=== PATIENT | male | born 1965 | race Caucasian/White ===

== ENCOUNTER 2019-02-27 13:58 | Inpatient (IN) | payer MEDICAID ==
[~2019-02-27] VITALS: Ht 167.6 cm; Wt 75.5 kg
[2019-02-27 14:56] VITALS: BP 125/80
[2019-02-27] MEDS ORDERED: ZOLPIDEM TARTRATE 10 MG TABLET PO PRN (15:30)
[2019-02-27] MEDS ORDERED: HALOPERIDOL 5 MG TABLET PO PRN (15:30)
[2019-02-27] MEDS ORDERED: QUET25TA PO (15:50)
[2019-02-27] MEDS ORDERED: PNEUMOCOCCAL VACCINE POLYVALENT 0.5 ML VIAL [PPSV23] IM ONE (16:00)
[2019-02-27 16:12] VITALS: BP 130/88
[2019-02-28] MEDS: ACETAMINOPHEN 325 MG TABLET PO PRN (06:28)
[2019-02-28 06:31] VITALS: BP 133/73
[2019-02-28] MEDS: LORazepam 2 MG TABLET PO PRN ×2 (06:46→16:01)
[2019-02-28 06:51] LABS: BASOPHILS % (AUTO) 0.4 % (0.0-2.0); EOSINOPHILS % (AUTO) 4.1 % (1.0-6.0); HEMATOCRIT 45.9 % (41-53); HEMOGLOBIN 15.3 g/dL (13.5-17.5); LYMPHOCYTES # (AUTO) 2.6 K/uL (1.0-4.8); LYMPHOCYTES % (AUTO) 43.4 % (22.0-44.0); MEAN CORPUSCULAR HEMOGLOBIN 31.6 pg (26.0-34.0); MEAN CORPUSCULAR HGB CONC 33.4 G/dL (31.0-37.0); MEAN CORPUSCULAR VOLUME 95 fL (80-100); MONOCYTES # (AUTO) 0.4 K/uL (0.1-1.0); MONOCYTES % (AUTO) 7.2 % (2.0-9.0); NEUTROPHILS # (AUTO) 2.7 K/uL (1.8-7.7); NEUTROPHILS % (AUTO) 44.9 % (40.0-70.0); PLATELET COUNT (AUTO) 217 K/uL (150-450); RED BLOOD CELL COUNT(AUTO) 4.85 MIL/uL (4.50-5.90); RED CELL DISTRIBUTION WIDTH 13.4 % (11.5-14.5)
[2019-02-28 07:34] LABS: AMPHET/METH SCREEN,URINE POSITIVE (NEGATIVE); BARBITURATE SCREEN, URINE NEGATIVE (NEGATIVE); BENZODIAZEPINES SCREEN,URINE NEGATIVE (NEGATIVE); CANNABINOID SCREEN,URINE NEGATIVE (NEGATIVE); COCAINE SCREEN,URINE NEGATIVE (NEGATIVE); METHADONE SCREEN, URINE NEGATIVE (NEGATIVE); OPIATE SCREEN,URINE POSITIVE (NEGATIVE)
[2019-02-28 07:39] LABS: ALANINE AMINOTRANSFERASE 24 U/L (12-78); ALBUMIN 3.7 g/dL (3.4-5.0); ALKALINE PHOSPHATASE 69 U/L (46-116); ANION GAP 8 mmol/L (8-16); ASPARTATE AMINOTRANSFERASE 29 U/L (15-37); CALCIUM, TOTAL 8.9 mg/dL (8.8-10.5); CARBON DIOXIDE 27 mmol/L (22-29); CHLORIDE 107 mmol/L (98-107); CHOL/HDL RATIO 2.6 (4.2-7.3); CHOLESTEROL 139 mg/dL (131-200); CREATININE 0.91 mg/dL (0.60-1.30); GLOMERULAR FILTR. RATE CALC > 60 mL/min (>60); GLUCOSE,RANDOM 88 mg/dL (70-110); HDL CHOLESTEROL 54 mg/dL (40-60); LDL CHOL (CALC.) 72 mg/dL (0-130); SODIUM SERUM 142 mmol/L (136-145); THYROID STIMULATING HORMONE 0.36 uIU/mL (0.36-3.74); TOTAL PROTEIN, SERUM 6.2 g/dL (6.4-8.2); TRIGLYCERIDES 64 mg/dL (15-150); UREA NITROGEN, BLOOD 13 mg/dL (7-18)
[2019-02-28 07:45] LABS: PHENCYCLIDINE SCREEN,URINE NEGATIVE (NEGATIVE)
[2019-02-28 08:10] LABS: BILIRUBIN,URINE NEGATIVE (NEGATIVE); GLUCOSE, URINE (UA) NEGATIVE (NEGATIVE); KETONES,URINE NEGATIVE (NEGATIVE); LEUKOCYTE ESTERASE ,URINE NEGATIVE (NEGATIVE); NITRATE,URINE NEGATIVE (NEGATIVE); OCCULT BLOOD,URINE NEGATIVE (NEGATIVE); PH,URINE 5.5 (5.0-8.0); PROTEIN,URINE NEGATIVE (NEGATIVE); UROBILINOGEN,URINE 0.2 mg/dL (<=1.0)
[2019-02-28 08:14] LABS: HEMOGLOBIN A1C 5.7 % (4.5-6.2)
[2019-02-28 08:17] VITALS: BP 106/64
[2019-02-28 08:20] LABS: APPEARANCE,URINE CLEAR (CLEAR)
[2019-02-28] MEDS: NICOTINE 21 MG/24 HOUR PATCH TD SCH (09:13)
[2019-02-28] MEDS: OLANZapine 10 MG TABLET PO SCH (16:01)
[2019-02-28 16:28] VITALS: BP 114/71
[2019-03-01 01:37] VITALS: BP 135/85
[2019-03-01] MEDS: IBUPROFEN 600 MG TABLET PO PRN ×3 (01:37→16:08)
[2019-03-01 08:02] VITALS: BP 132/83
[2019-03-01] MEDS: OLANZapine 10 MG TABLET PO SCH ×2 (08:34→16:08)
[2019-03-01] MEDS: NICOTINE 21 MG/24 HOUR PATCH TD SCH (08:34)
[2019-03-01 10:43] VITALS: BP 130/86
[2019-03-01 16:00] VITALS: BP 117/75
[2019-03-01] MEDS: LORazepam 2 MG TABLET PO PRN (16:08)
[2019-03-01 17:08] VITALS: BP 122/70
[2019-03-02 01:40] VITALS: BP 116/73
[2019-03-02] MEDS: IBUPROFEN 600 MG TABLET PO PRN ×2 (04:50→12:33)
[2019-03-02 08:02] VITALS: BP 102/45
[2019-03-02] MEDS: NICOTINE 21 MG/24 HOUR PATCH TD SCH (08:05)
[2019-03-02] MEDS: OLANZapine 10 MG TABLET PO SCH ×2 (08:05→16:23)
[2019-03-02 12:33] VITALS: BP 130/75
[2019-03-02 13:33] VITALS: BP 134/87
[2019-03-02] MEDS: LORazepam 2 MG TABLET PO PRN (14:52)
[2019-03-02 16:00] VITALS: BP 136/90
[2019-03-03] MEDS: IBUPROFEN 600 MG TABLET PO PRN ×2 (05:30→12:39)
[2019-03-03 05:31] VITALS: BP 132/88
[2019-03-03] MEDS: ACETAMINOPHEN 325 MG TABLET PO PRN (06:24)
[2019-03-03 08:01] VITALS: BP 126/79
[2019-03-03] MEDS: OLANZapine 10 MG TABLET PO SCH ×2 (08:02→16:14)
[2019-03-03] MEDS: NICOTINE 21 MG/24 HOUR PATCH TD SCH (08:03)
[2019-03-03 12:35] VITALS: BP 132/77
[2019-03-03 13:39] VITALS: BP 135/77
[2019-03-03 16:02] VITALS: BP 128/84
[2019-03-03] MEDS: LORazepam 2 MG TABLET PO PRN (16:14)
[2019-03-04 00:05] VITALS: BP 131/85
[2019-03-04] MEDS: IBUPROFEN 600 MG TABLET PO PRN (00:08)
[2019-03-04 06:04] VITALS: BP 116/80
[2019-03-04] MEDS: ACETAMINOPHEN 325 MG TABLET PO PRN (06:06)
[2019-03-04 08:07] VITALS: BP 124/70
[2019-03-04] MEDS: NICOTINE 21 MG/24 HOUR PATCH TD SCH (08:29)
[2019-03-04] MEDS: OLANZapine 10 MG TABLET PO SCH ×2 (08:29→16:36)
[2019-03-04] MEDS: LORazepam 2 MG TABLET PO PRN ×2 (09:03→13:54)
[2019-03-04 16:00] VITALS: BP 109/68
[2019-03-05 01:55] VITALS: BP 114/69
[2019-03-05] MEDS: IBUPROFEN 600 MG TABLET PO PRN (02:00)
[2019-03-05] MEDS: LORazepam 2 MG TABLET PO PRN ×2 (02:00→16:13)
[2019-03-05 08:00] VITALS: BP 124/65
[2019-03-05] MEDS: OLANZapine 10 MG TABLET PO SCH ×2 (08:14→16:13)
[2019-03-05] MEDS: NICOTINE 21 MG/24 HOUR PATCH TD SCH (08:16)
[2019-03-05 16:24] VITALS: BP 115/76
[2019-03-06 00:28] VITALS: BP_SYST 103; BP_SYST 112; BP_DIAS 73
[2019-03-06] MEDS: LORazepam 2 MG TABLET PO PRN (00:28)
[2019-03-06] MEDS: IBUPROFEN 600 MG TABLET PO PRN (00:28)
[2019-03-06] MEDS: OLANZapine 10 MG TABLET PO SCH (08:14)
[2019-03-06] MEDS: NICOTINE 21 MG/24 HOUR PATCH TD SCH (08:14)
[2019-03-06 08:30] VITALS: BP 106/67
[2019-03-06] MEDS ORDERED: MULTIVITAMINS WITH MINERALS, THERAPEUTIC TABLET PO SCH (09:00)
[2019-03-06] MEDS ORDERED: OLAN10TA20 PO (09:00)
[2019-03-06] MEDS ORDERED: OLAN10TA3 PO (12:27)
== END 2019-03-06 13:00 | disposition home or self-care (01) | DRG 750 ==
LOC: B3A 16:52
PROVIDERS: ADMIT Psychiatry & Neurology Child & Adolescent Psychiatry; ATTEND Psychiatry & Neurology Child & Adolescent Psychiatry
PROC: 3E0234Z Introduction of Serum, Toxoid and Vaccine into Muscle, Percutaneous Approach (ICD-10-PCS; principal; 2019-02-27)
DX: F20.0 Paranoid schizophrenia (principal); Z59.0 Homelessness; E78.00 Pure hypercholesterolemia, unspecified; F15.10 Other stimulant abuse, uncomplicated; I10 Essential (primary) hypertension; F17.200 Nicotine dependence, unspecified, uncomplicated; Z23 Encounter for immunization
CPT/HCPCS: 80307; 83036; 84439; 84443; 90732

== ENCOUNTER 2019-05-06 15:29 | Inpatient (IN) | payer MEDICAID ==
[~2019-05-06] VITALS: Ht 167.6 cm; Wt 85.3 kg
[~2019-05-06 15:29] MED LIST: OLAN10TA20 PO; OLAN10TA3 PO
[2019-05-06 17:01] VITALS: BP 110/73
[2019-05-06] MEDS: ZOLPIDEM TARTRATE 10 MG TABLET PO PRN (20:33)
[2019-05-07 06:10] VITALS: BP 105/65
[2019-05-07 07:38] LABS: BASOPHILS % (AUTO) 0.3 % (0.0-2.0); EOSINOPHILS % (AUTO) 3.5 % (1.0-6.0); HEMATOCRIT 42.5 % (41-53); HEMOGLOBIN 14.5 g/dL (13.5-17.5); LYMPHOCYTES % (AUTO) 27.4 % (22.0-44.0); MEAN CORPUSCULAR HEMOGLOBIN 32.4 pg (26.0-34.0); MEAN CORPUSCULAR HGB CONC 34.1 G/dL (31.0-37.0); MEAN CORPUSCULAR VOLUME 95 fL (80-100); MONOCYTES # (AUTO) 0.5 K/uL (0.1-1.0); MONOCYTES % (AUTO) 6.1 % (2.0-9.0); NEUTROPHILS # (AUTO) 4.7 K/uL (1.8-7.7); NEUTROPHILS % (AUTO) 62.7 % (40.0-70.0); PLATELET COUNT (AUTO) 237 K/uL (150-450); RED BLOOD CELL COUNT(AUTO) 4.48 MIL/uL (4.50-5.90); RED CELL DISTRIBUTION WIDTH 14.5 % (11.5-14.5)
[2019-05-07 07:57] LABS: HEMOGLOBIN A1C 5.4 % (4.5-6.2)
[2019-05-07 08:11] LABS: ALANINE AMINOTRANSFERASE 23 U/L (12-78); ALBUMIN 3.4 g/dL (3.4-5.0); ALKALINE PHOSPHATASE 73 U/L (46-116); ANION GAP 9 mmol/L (8-16); ASPARTATE AMINOTRANSFERASE 17 U/L (15-37); BILIRUBIN,TOTAL 0.3 mg/dL (0.1-1.0); CALCIUM, TOTAL 8.7 mg/dL (8.8-10.5); CARBON DIOXIDE 23 mmol/L (22-29); CHLORIDE 108 mmol/L (98-107); CHOL/HDL RATIO 3.5 (4.2-7.3); CHOLESTEROL 152 mg/dL (131-200); CREATININE 0.94 mg/dL (0.60-1.30); FREE T4 (FREE THYROXINE) 0.94 ng/dL (0.76-1.46); GLOMERULAR FILTR. RATE CALC > 60 mL/min (>60); GLUCOSE,RANDOM 110 mg/dL (70-110); HDL CHOLESTEROL 44 mg/dL (40-60); LDL CHOL (CALC.) 84 mg/dL (0-130); POTASSIUM 4.8 mmol/L (3.5-5.1); SODIUM SERUM 140 mmol/L (136-145); THYROID STIMULATING HORMONE 0.28 uIU/mL (0.36-3.74); TOTAL PROTEIN, SERUM 6.4 g/dL (6.4-8.2); TRIGLYCERIDES 122 mg/dL (15-150); UREA NITROGEN, BLOOD 18 mg/dL (7-18)
[2019-05-07] MEDS: LORazepam 2 MG TABLET PO PRN ×2 (08:16→16:54)
[2019-05-07] MEDS: HALOPERIDOL 5 MG TABLET PO PRN ×2 (08:17→16:54)
[2019-05-07 09:05] VITALS: BP 118/67
[2019-05-07] MEDS: OLANZapine 10 MG TABLET PO SCH ×2 (10:12→20:25)
[2019-05-07] MEDS: NICOTINE 14 MG/24 HOUR PATCH TD SCH (10:22)
[2019-05-07 16:45] VITALS: BP 122/84
[2019-05-07] MEDS: ZOLPIDEM TARTRATE 10 MG TABLET PO PRN (20:25)
[2019-05-08 05:27] VITALS: BP 117/72
[2019-05-08] MEDS: LORazepam 2 MG TABLET PO PRN ×2 (08:14→16:12)
[2019-05-08] MEDS: NICOTINE 14 MG/24 HOUR PATCH TD SCH (08:14)
[2019-05-08] MEDS: OLANZapine 10 MG TABLET PO SCH ×2 (08:14→20:07)
[2019-05-08 08:15] VITALS: BP 121/67
[2019-05-08] MEDS: GABAPENTIN 400 MG CAPSULE PO SCH ×2 (12:08→16:12)
[2019-05-08 16:00] VITALS: BP 110/66
[2019-05-08] MEDS: ZOLPIDEM TARTRATE 10 MG TABLET PO PRN (20:07)
[2019-05-09] MEDS: OLANZapine 10 MG TABLET PO SCH ×2 (08:07→20:12)
[2019-05-09] MEDS: GABAPENTIN 400 MG CAPSULE PO SCH ×3 (08:07→16:27)
[2019-05-09] MEDS: NICOTINE 14 MG/24 HOUR PATCH TD SCH (08:08)
[2019-05-09] MEDS: LORazepam 2 MG TABLET PO PRN (08:08)
[2019-05-09 08:36] VITALS: BP 110/68
[2019-05-09 14:05] VITALS: BP 114/82
[2019-05-09] MEDS: ACETAMINOPHEN 325 MG TABLET PO PRN (14:09)
[2019-05-09 16:10] VITALS: BP 118/68
[2019-05-10 00:52] VITALS: BP 121/68
[2019-05-10] MEDS: ACETAMINOPHEN 325 MG TABLET PO PRN ×2 (00:52→07:23)
[2019-05-10 07:19] VITALS: BP 122/70
[2019-05-10 08:39] VITALS: BP 127/63
[2019-05-10] MEDS: GABAPENTIN 400 MG CAPSULE PO SCH ×2 (08:55→12:20)
[2019-05-10] MEDS: OLANZapine 10 MG TABLET PO SCH (08:55)
[2019-05-10] MEDS: NICOTINE 14 MG/24 HOUR PATCH TD SCH (08:55)
[2019-05-10] MEDS ORDERED: GABA-533 PO (11:23)
[2019-05-10] MEDS ORDERED: OLAN10TA3 PO (11:23)
== END 2019-05-10 12:25 | disposition home or self-care (01) | DRG 750 ==
LOC: B3A 18:58 → B2S 05-09 12:19
PROVIDERS: ADMIT Psychiatry & Neurology Psychiatry; ATTEND Psychiatry & Neurology Psychiatry
DX: F25.1 Schizoaffective disorder, depressive type (principal); R45.851 Suicidal ideations; Z59.0 Homelessness; I10 Essential (primary) hypertension; E78.00 Pure hypercholesterolemia, unspecified; F15.10 Other stimulant abuse, uncomplicated; F12.10 Cannabis abuse, uncomplicated; Z79.899 Other long term (current) drug therapy
CPT/HCPCS: 83036; 84439; 84443

== ENCOUNTER 2019-05-26 15:42 | Inpatient (IN) | payer MEDICAID ==
[~2019-05-26] VITALS: Ht 175.3 cm; Wt 80.5 kg
[~2019-05-26 15:42] MED LIST changes: +GABA-533 PO; -OLAN10TA20 PO
[2019-05-26] MEDS ORDERED: PROZ10 PO (16:03)
[2019-05-26 16:44] VITALS: BP 118/72
[2019-05-26] MEDS ORDERED: LORazepam 2 MG TABLET PO PRN (16:45)
[2019-05-26] MEDS ORDERED: ZOLPIDEM TARTRATE 10 MG TABLET PO PRN (16:45)
[2019-05-26] MEDS ORDERED: HALOPERIDOL 5 MG TABLET PO PRN (16:45)
[2019-05-26 17:16] VITALS: BP 122/80
[2019-05-26] MEDS: IBUPROFEN 600 MG TABLET PO PRN (19:03)
[2019-05-26] MEDS ORDERED: INFLUENZA VIRUS VACCINE QVS 2019-20 (3YR+)/PF 60 MCG/0.5 ML SYRINGE IM ONE (22:00)
[2019-05-27 00:44] VITALS: BP 109/67
[2019-05-27 06:28] VITALS: BP 133/77
[2019-05-27] MEDS: IBUPROFEN 600 MG TABLET PO PRN ×2 (06:32→16:07)
[2019-05-27 08:15] VITALS: BP 122/64
[2019-05-27 08:16] LABS: BASOPHILS % (AUTO) 0.3 % (0.0-2.0); EOSINOPHILS % (AUTO) 2.7 % (1.0-6.0); HEMATOCRIT 42.7 % (41-53); HEMOGLOBIN 14.7 g/dL (13.5-17.5); LYMPHOCYTES # (AUTO) 1.8 K/uL (1.0-4.8); LYMPHOCYTES % (AUTO) 32.4 % (22.0-44.0); MEAN CORPUSCULAR HEMOGLOBIN 32.2 pg (26.0-34.0); MEAN CORPUSCULAR HGB CONC 34.4 G/dL (31.0-37.0); MEAN CORPUSCULAR VOLUME 94 fL (80-100); MONOCYTES # (AUTO) 0.3 K/uL (0.1-1.0); MONOCYTES % (AUTO) 5.2 % (2.0-9.0); NEUTROPHILS # (AUTO) 3.3 K/uL (1.8-7.7); NEUTROPHILS % (AUTO) 59.4 % (40.0-70.0); PLATELET COUNT (AUTO) 227 K/uL (150-450); RED BLOOD CELL COUNT(AUTO) 4.56 MIL/uL (4.50-5.90); RED CELL DISTRIBUTION WIDTH 14.2 % (11.5-14.5)
[2019-05-27] MEDS: NICOTINE 21 MG/24 HOUR PATCH TD SCH (08:49)
[2019-05-27 09:04] LABS: ALANINE AMINOTRANSFERASE 22 U/L (12-78); ALBUMIN 3.6 g/dL (3.4-5.0); ALKALINE PHOSPHATASE 54 U/L (46-116); ANION GAP 7 mmol/L (8-16); ASPARTATE AMINOTRANSFERASE 17 U/L (15-37); BILIRUBIN,TOTAL 0.5 mg/dL (0.1-1.0); CALCIUM, TOTAL 9.3 mg/dL (8.8-10.5); CARBON DIOXIDE 29 mmol/L (22-29); CHLORIDE 106 mmol/L (98-107); CHOL/HDL RATIO 2.5 (4.2-7.3); CHOLESTEROL 137 mg/dL (131-200); CREATININE 0.96 mg/dL (0.60-1.30); FREE T4 (FREE THYROXINE) 1.01 ng/dL (0.76-1.46); GLOMERULAR FILTR. RATE CALC > 60 mL/min (>60); GLUCOSE,RANDOM 99 mg/dL (70-110); HDL CHOLESTEROL 54 mg/dL (40-60); HEMOGLOBIN A1C 5.7 % (4.5-6.2); LDL CHOL (CALC.) 69 mg/dL (0-130); POTASSIUM 4.7 mmol/L (3.5-5.1); SODIUM SERUM 142 mmol/L (136-145); THYROID STIMULATING HORMONE 0.53 uIU/mL (0.36-3.74); TOTAL PROTEIN, SERUM 6.3 g/dL (6.4-8.2); TRIGLYCERIDES 71 mg/dL (15-150); UREA NITROGEN, BLOOD 17 mg/dL (7-18)
[2019-05-27] MEDS: GABAPENTIN 400 MG CAPSULE PO SCH ×2 (12:18→16:07)
[2019-05-27] MEDS: OLANZapine 10 MG TABLET PO SCH ×2 (12:18→20:21)
[2019-05-27 16:07] VITALS: BP 120/62
[2019-05-27] MEDS: FLUoxetine HCL 10 MG CAPSULE PO SCH (20:21)
[2019-05-28 01:21] VITALS: BP 134/65
[2019-05-28] MEDS: GABAPENTIN 400 MG CAPSULE PO SCH ×3 (08:32→16:04)
[2019-05-28] MEDS: NICOTINE 21 MG/24 HOUR PATCH TD SCH (08:33)
[2019-05-28] MEDS: OLANZapine 10 MG TABLET PO SCH ×2 (08:33→20:14)
[2019-05-28 08:44] VITALS: BP 113/68
[2019-05-28 16:04] VITALS: BP 123/65
[2019-05-28] MEDS: IBUPROFEN 600 MG TABLET PO PRN (16:04)
[2019-05-28] MEDS: FLUoxetine HCL 10 MG CAPSULE PO SCH (20:14)
[2019-05-29 00:47] VITALS: BP 117/68
[2019-05-29 08:25] VITALS: BP 117/67
[2019-05-29] MEDS: GABAPENTIN 400 MG CAPSULE PO SCH (08:32)
[2019-05-29] MEDS: OLANZapine 10 MG TABLET PO SCH (08:32)
[2019-05-29] MEDS: NICOTINE 21 MG/24 HOUR PATCH TD SCH (08:33)
[2019-05-29] MEDS ORDERED: OLAN10TA20 PO (08:37)
[2019-05-29] MEDS ORDERED: PROZ10 PO (08:37)
== END 2019-05-29 09:40 | disposition home or self-care (01) | DRG 750 ==
LOC: B2S 16:42
PROVIDERS: ADMIT Psychiatry & Neurology Child & Adolescent Psychiatry; ATTEND Psychiatry & Neurology Child & Adolescent Psychiatry
DX: F25.1 Schizoaffective disorder, depressive type (principal); F15.20 Other stimulant dependence, uncomplicated; R45.851 Suicidal ideations; E78.00 Pure hypercholesterolemia, unspecified; F17.200 Nicotine dependence, unspecified, uncomplicated; Z59.0 Homelessness; Z79.899 Other long term (current) drug therapy
CPT/HCPCS: 83036; 84439; 84443; 87081

== ENCOUNTER 2019-05-31 00:21 | Inpatient (IN) | payer MEDICAID, OTHER ==
[~2019-05-31] VITALS: Ht 172.7 cm; Wt 77.6 kg
[~2019-05-31 00:21] MED LIST changes: +OLAN10TA20 PO; -OLAN10TA3 PO; +PROZ10 PO
[2019-05-31] MEDS ORDERED: FLUoxetine HCL 10 MG CAPSULE PO ONE (01:15)
[2019-05-31] MEDS ORDERED: OLANZapine 5 MG TABLET PO ONE (01:15)
[2019-05-31 01:16] LABS: BASOPHILS % (AUTO) 0.3 % (0.0-2.0); EOSINOPHILS % (AUTO) 2.5 % (1.0-6.0); HEMATOCRIT 48.5 % (41-53); HEMOGLOBIN 16.5 g/dL (13.5-17.5); LYMPHOCYTES # (AUTO) 2.6 K/uL (1.0-4.8); LYMPHOCYTES % (AUTO) 32.3 % (22.0-44.0); MEAN CORPUSCULAR VOLUME 94 fL (80-100); MONOCYTES # (AUTO) 0.6 K/uL (0.1-1.0); MONOCYTES % (AUTO) 7.3 % (2.0-9.0); NEUTROPHILS # (AUTO) 4.7 K/uL (1.8-7.7); NEUTROPHILS % (AUTO) 57.6 % (40.0-70.0); PLATELET COUNT (AUTO) 251 K/uL (150-450); RED BLOOD CELL COUNT(AUTO) 5.15 MIL/uL (4.50-5.90); RED CELL DISTRIBUTION WIDTH 14.4 % (11.5-14.5)
[2019-05-31 01:29] LABS: ALANINE AMINOTRANSFERASE 23 U/L (12-78); ALBUMIN 4.4 g/dL (3.4-5.0); ALKALINE PHOSPHATASE 78 U/L (46-116); ANION GAP 7 mmol/L (8-16); ASPARTATE AMINOTRANSFERASE 26 U/L (15-37); BILIRUBIN,TOTAL 0.5 mg/dL (0.1-1.0); CALCIUM, TOTAL 9.7 mg/dL (8.8-10.5); CARBON DIOXIDE 32 mmol/L (22-29); CHLORIDE 103 mmol/L (98-107); CREATININE 1.11 mg/dL (0.60-1.30); GLOMERULAR FILTR. RATE CALC > 60 mL/min (>60); GLUCOSE,RANDOM 67 mg/dL (70-110); POTASSIUM 3.8 mmol/L (3.5-5.1); SODIUM SERUM 142 mmol/L (136-145)
[2019-05-31] MEDS ORDERED: IBUPROFEN 800 MG TABLET PO ONE (01:30)
[2019-05-31] MEDS ORDERED: HALOPERIDOL 5 MG TABLET PO PRN (01:30)
[2019-05-31] MEDS ORDERED: ZOLPIDEM TARTRATE 10 MG TABLET PO PRN (01:30)
[2019-05-31 01:38] LABS: UREA NITROGEN, BLOOD 13 mg/dL (7-18)
[2019-05-31 03:32] LABS: APPEARANCE,URINE CLEAR (CLEAR); BILIRUBIN,URINE NEGATIVE (NEGATIVE); GLUCOSE, URINE (UA) NEGATIVE (NEGATIVE); KETONES,URINE NEGATIVE (NEGATIVE); LEUKOCYTE ESTERASE ,URINE NEGATIVE (NEGATIVE); NITRATE,URINE NEGATIVE (NEGATIVE); OCCULT BLOOD,URINE NEGATIVE (NEGATIVE); PROTEIN,URINE NEGATIVE (NEGATIVE); UROBILINOGEN,URINE 0.2 mg/dL (<=1.0)
[2019-05-31 03:37] LABS: AMPHET/METH SCREEN,URINE POSITIVE (NEGATIVE); BARBITURATE SCREEN, URINE NEGATIVE (NEGATIVE); BENZODIAZEPINES SCREEN,URINE NEGATIVE (NEGATIVE); CANNABINOID SCREEN,URINE NEGATIVE (NEGATIVE); COCAINE SCREEN,URINE NEGATIVE (NEGATIVE); METHADONE SCREEN, URINE NEGATIVE (NEGATIVE); OPIATE SCREEN,URINE NEGATIVE (NEGATIVE); PHENCYCLIDINE SCREEN,URINE NEGATIVE (NEGATIVE)
[2019-05-31 04:09] VITALS: BP 127/97
[2019-05-31] MEDS ORDERED: INFLUENZA VIRUS VACCINE QVS 2019-20 (3YR+)/PF 60 MCG/0.5 ML SYRINGE IM ONE (05:45)
[2019-05-31 08:46] VITALS: BP 119/76
[2019-05-31] MEDS: OLANZapine 10 MG TABLET PO SCH ×2 (13:28→20:33)
[2019-05-31] MEDS: GABAPENTIN 400 MG CAPSULE PO SCH ×2 (13:28→16:23)
[2019-05-31] MEDS: LORazepam 2 MG TABLET PO PRN (16:22)
[2019-05-31 16:46] VITALS: BP 130/77
[2019-05-31] MEDS: FLUoxetine HCL 10 MG CAPSULE PO SCH (20:33)
[2019-06-01 06:44] LABS: CHOL/HDL RATIO 2.3 (4.2-7.3)
[2019-06-01 08:30] VITALS: BP 107/65
[2019-06-01] MEDS: OLANZapine 10 MG TABLET PO SCH ×2 (09:00→20:28)
[2019-06-01] MEDS: LORazepam 2 MG TABLET PO PRN (09:00)
[2019-06-01] MEDS: GABAPENTIN 400 MG CAPSULE PO SCH ×3 (09:00→16:15)
[2019-06-01] MEDS ORDERED: ONDANSETRON HCL 4 MG TABLET PO PRN (09:30)
[2019-06-01] MEDS ORDERED: NICOTINE 14 MG/24 HOUR PATCH TD PRN (09:30)
[2019-06-01] MEDS ORDERED: LOPERAMIDE HCL 2 MG CAPSULE PO PRN (09:30)
[2019-06-01] MEDS ORDERED: CloNIDine HCL 0.1 MG TABLET PO PRN (09:30)
[2019-06-01] MEDS ORDERED: DOCUSATE SODIUM 100 MG CAPSULE PO PRN (09:30)
[2019-06-01] MEDS ORDERED: ALBUTEROL SULFATE HFA 90 MCG/PUFF 8 GM INHALER IH PRN (09:30)
[2019-06-01] MEDS ORDERED: MAGNESIUM HYDROXIDE SUSPENSION 30 ML UDCUP PO PRN (09:30)
[2019-06-01] MEDS ORDERED: GuaiFENesin/D-METHORPHAN [SUGAR-FREE] 200-20MG/10 ML SYRUP UDCUP PO PRN (09:30)
[2019-06-01] MEDS ORDERED: ACETAMINOPHEN 325 MG TABLET PO PRN (09:30)
[2019-06-01] MEDS ORDERED: MAG HYDROX/AL HYDROX/SIMETH ES 30 ML SUSPENSION UDCUP PO PRN (09:30)
[2019-06-01] MEDS ORDERED: PETROLATUM,WHITE 28 GM JELLY TP PRN (09:30)
[2019-06-01 16:49] VITALS: BP 98/68
[2019-06-01] MEDS: FLUoxetine HCL 10 MG CAPSULE PO SCH (20:28)
[2019-06-02 07:50] VITALS: BP 113/68
[2019-06-02] MEDS: LORazepam 2 MG TABLET PO PRN (09:56)
[2019-06-02 09:57] VITALS: BP 113/68
[2019-06-02] MEDS: GABAPENTIN 400 MG CAPSULE PO SCH ×3 (09:57→16:36)
[2019-06-02] MEDS: IBUPROFEN 400 MG TABLET PO PRN (09:57)
[2019-06-02] MEDS: OLANZapine 10 MG TABLET PO SCH ×2 (09:59→20:47)
[2019-06-02] MEDS: FLUoxetine HCL 10 MG CAPSULE PO SCH (20:47)
[2019-06-03 08:39] VITALS: BP 121/75
[2019-06-03] MEDS: OLANZapine 10 MG TABLET PO SCH (08:39)
[2019-06-03] MEDS: IBUPROFEN 400 MG TABLET PO PRN (08:39)
[2019-06-03] MEDS: GABAPENTIN 400 MG CAPSULE PO SCH (08:39)
== END 2019-06-03 11:00 | disposition home or self-care (01) | DRG 750 ==
LOC: EMS 00:25 → 3EI 02:23
PROVIDERS: ADMIT Psychiatry & Neurology Child & Adolescent Psychiatry; ATTEND Psychiatry & Neurology Child & Adolescent Psychiatry
DX: F25.1 Schizoaffective disorder, depressive type (principal); R45.851 Suicidal ideations; Z59.0 Homelessness; I10 Essential (primary) hypertension; F15.90 Other stimulant use, unspecified, uncomplicated; F12.90 Cannabis use, unspecified, uncomplicated; F41.9 Anxiety disorder, unspecified
CPT/HCPCS: 87081; G0480; Q0162

== ENCOUNTER 2019-06-22 23:50 | Inpatient (IN) | payer MEDICAID, OTHER ==
[~2019-06-22] VITALS: Ht 172.7 cm; Wt 77.0 kg
[2019-06-23 00:24] LABS: BASOPHILS % (AUTO) 1.2 % (0.0-2.0); EOSINOPHILS % (AUTO) 4.3 % (1.0-6.0); HEMATOCRIT 40.2 % (41-53); HEMOGLOBIN 13.8 g/dL (13.5-17.5); LYMPHOCYTES # (AUTO) 2.3 K/uL (1.0-4.8); LYMPHOCYTES % (AUTO) 34.7 % (22.0-44.0); MEAN CORPUSCULAR HGB CONC 34.4 G/dL (31.0-37.0); MEAN CORPUSCULAR VOLUME 93 fL (80-100); MONOCYTES # (AUTO) 0.7 K/uL (0.1-1.0); MONOCYTES % (AUTO) 11.1 % (2.0-9.0); NEUTROPHILS # (AUTO) 3.2 K/uL (1.8-7.7); NEUTROPHILS % (AUTO) 48.7 % (40.0-70.0); PLATELET COUNT (AUTO) 237 K/uL (150-450); RED BLOOD CELL COUNT(AUTO) 4.31 MIL/uL (4.50-5.90); RED CELL DISTRIBUTION WIDTH 14.6 % (11.5-14.5)
[2019-06-23 00:32] LABS: ANION GAP 9 mmol/L (8-16); CALCIUM, TOTAL 8.7 mg/dL (8.8-10.5); CARBON DIOXIDE 25 mmol/L (22-29); CHLORIDE 101 mmol/L (98-107); CREATININE 0.89 mg/dL (0.60-1.30); GLOMERULAR FILTR. RATE CALC > 60 mL/min (>60); GLUCOSE,RANDOM 105 mg/dL (70-110); POTASSIUM 3.8 mmol/L (3.5-5.1); SODIUM SERUM 135 mmol/L (136-145); UREA NITROGEN, BLOOD 17 mg/dL (7-18)
[2019-06-23 00:39] LABS: ALANINE AMINOTRANSFERASE 30 U/L (12-78); ALBUMIN 3.8 g/dL (3.4-5.0); ALKALINE PHOSPHATASE 76 U/L (46-116); ASPARTATE AMINOTRANSFERASE 33 U/L (15-37); BILIRUBIN,TOTAL 0.6 mg/dL (0.1-1.0); TOTAL PROTEIN, SERUM 6.9 g/dL (6.4-8.2)
[2019-06-23 01:00] LABS: AMPHET/METH SCREEN,URINE POSITIVE (NEGATIVE); BARBITURATE SCREEN, URINE NEGATIVE (NEGATIVE); BENZODIAZEPINES SCREEN,URINE POSITIVE (NEGATIVE); CANNABINOID SCREEN,URINE POSITIVE (NEGATIVE); COCAINE SCREEN,URINE NEGATIVE (NEGATIVE); METHADONE SCREEN, URINE NEGATIVE (NEGATIVE); OPIATE SCREEN,URINE NEGATIVE (NEGATIVE); PHENCYCLIDINE SCREEN,URINE NEGATIVE (NEGATIVE)
[2019-06-23] MEDS ORDERED: ONDANSETRON HCL 4 MG/2 ML VIAL IVP PRN (02:30)
[2019-06-23] MEDS ORDERED: 0.9% SODIUM CHLORIDE 10 ML SYRINGE IVP PRN (02:30)
[2019-06-23] MEDS ORDERED: ACETAMINOPHEN 325 MG TABLET PO PRN (02:30)
[2019-06-23] MEDS ORDERED: ZOLPIDEM TARTRATE 10 MG TABLET PO PRN (02:45)
[2019-06-23] MEDS ORDERED: OLANZapine 5 MG TABLET PO PRN (02:45)
[2019-06-23 04:20] LABS: APPEARANCE,URINE CLEAR (CLEAR); BILIRUBIN,URINE NEGATIVE (NEGATIVE); GLUCOSE, URINE (UA) NEGATIVE (NEGATIVE); KETONES,URINE NEGATIVE (NEGATIVE); LEUKOCYTE ESTERASE ,URINE NEGATIVE (NEGATIVE); NITRATE,URINE NEGATIVE (NEGATIVE); OCCULT BLOOD,URINE NEGATIVE (NEGATIVE); PH,URINE 5.5 (5.0-8.0); PROTEIN,URINE NEGATIVE (NEGATIVE)
[2019-06-23] MEDS: LORazepam 2 MG TABLET PO PRN ×2 (05:45→16:51)
[2019-06-23] MEDS ORDERED: ACETAMINOPHEN 500 MG TABLET ONE (06:02)
[2019-06-23 06:59] VITALS: BP 108/70
[2019-06-23 07:31] VITALS: BP 114/68
[2019-06-23] MEDS: OLANZapine 10 MG TABLET PO SCH ×2 (11:46→20:51)
[2019-06-23] MEDS: GABAPENTIN 400 MG CAPSULE PO SCH ×2 (12:01→16:51)
[2019-06-23] MEDS: FLUoxetine HCL 10 MG CAPSULE PO SCH (12:35)
[2019-06-23 16:07] VITALS: BP 116/60
[2019-06-24 06:02] VITALS: BP 118/71
[2019-06-24 08:00] VITALS: BP 132/62
[2019-06-24] MEDS: FLUoxetine HCL 10 MG CAPSULE PO SCH (08:36)
[2019-06-24] MEDS: OLANZapine 10 MG TABLET PO SCH ×2 (08:36→20:24)
[2019-06-24] MEDS: GABAPENTIN 400 MG CAPSULE PO SCH ×3 (08:36→16:51)
[2019-06-24 08:45] LABS: CHOL/HDL RATIO 2.7 (4.2-7.3)
[2019-06-24 16:11] VITALS: BP 120/82
[2019-06-25 03:00] VITALS: BP 120/81
[2019-06-25] MEDS: LORazepam 2 MG TABLET PO PRN (06:27)
[2019-06-25 08:00] VITALS: BP 132/86
[2019-06-25] MEDS: FLUoxetine HCL 10 MG CAPSULE PO SCH (08:24)
[2019-06-25] MEDS: GABAPENTIN 400 MG CAPSULE PO SCH ×3 (08:24→17:04)
[2019-06-25] MEDS: OLANZapine 10 MG TABLET PO SCH ×2 (08:24→20:35)
[2019-06-25 16:03] VITALS: BP 122/67
[2019-06-26 06:34] VITALS: BP 134/87
[2019-06-26 08:02] VITALS: BP 140/98
[2019-06-26] MEDS: GABAPENTIN 400 MG CAPSULE PO SCH ×3 (08:29→16:28)
[2019-06-26] MEDS: OLANZapine 10 MG TABLET PO SCH ×2 (08:29→20:27)
[2019-06-26] MEDS: FLUoxetine HCL 10 MG CAPSULE PO SCH (08:30)
[2019-06-26 16:00] VITALS: BP 149/84
[2019-06-27 05:51] VITALS: BP 125/94
[2019-06-27 08:08] VITALS: BP 138/74
[2019-06-27] MEDS: GABAPENTIN 400 MG CAPSULE PO SCH ×3 (08:39→16:04)
[2019-06-27] MEDS: FLUoxetine HCL 10 MG CAPSULE PO SCH (08:39)
[2019-06-27] MEDS: OLANZapine 10 MG TABLET PO SCH ×2 (08:39→20:03)
[2019-06-27] MEDS: NICOTINE 14 MG/24 HOUR PATCH TD SCH (09:57)
[2019-06-27 17:06] VITALS: BP 121/83
[2019-06-28 04:49] VITALS: BP 124/88
[2019-06-28 08:04] VITALS: BP 133/78
[2019-06-28] MEDS ORDERED: ONDANSETRON HCL 4 MG TABLET PO PRN (08:30)
[2019-06-28] MEDS ORDERED: MAGNESIUM HYDROXIDE SUSPENSION 30 ML UDCUP PO PRN (08:30)
[2019-06-28] MEDS ORDERED: MAG HYDROX/AL HYDROX/SIMETH ES 30 ML SUSPENSION UDCUP PO PRN (08:30)
[2019-06-28] MEDS ORDERED: NICOTINE 14 MG/24 HOUR PATCH TD PRN (08:30)
[2019-06-28] MEDS ORDERED: ALBUTEROL SULFATE HFA 90 MCG/PUFF 8 GM INHALER IH PRN (08:30)
[2019-06-28] MEDS ORDERED: CloNIDine HCL 0.1 MG TABLET PO PRN (08:30)
[2019-06-28] MEDS ORDERED: LOPERAMIDE HCL 2 MG CAPSULE PO PRN (08:30)
[2019-06-28] MEDS ORDERED: DOCUSATE SODIUM 100 MG CAPSULE PO PRN (08:30)
[2019-06-28] MEDS ORDERED: ACETAMINOPHEN 325 MG TABLET PO PRN (08:30)
[2019-06-28] MEDS ORDERED: PETROLATUM,WHITE 28 GM JELLY TP PRN (08:30)
[2019-06-28] MEDS ORDERED: GuaiFENesin/D-METHORPHAN [SUGAR-FREE] 200-20MG/10 ML SYRUP UDCUP PO PRN (08:30)
[2019-06-28] MEDS: FLUoxetine HCL 10 MG CAPSULE PO SCH (08:58)
[2019-06-28] MEDS: OLANZapine 10 MG TABLET PO SCH ×2 (08:59→20:51)
[2019-06-28] MEDS: IBUPROFEN 400 MG TABLET PO PRN (08:59)
[2019-06-28] MEDS: GABAPENTIN 400 MG CAPSULE PO SCH ×3 (08:59→17:02)
[2019-06-28] MEDS: NICOTINE 14 MG/24 HOUR PATCH TD SCH (09:00)
[2019-06-28 16:03] VITALS: BP 118/77
[2019-06-29 05:55] VITALS: BP 100/73
[2019-06-29] MEDS: IBUPROFEN 400 MG TABLET PO PRN (05:59)
[2019-06-29 07:58] LABS: BASOPHILS % (AUTO) 0.3 % (0.0-2.0); EOSINOPHILS % (AUTO) 3.2 % (1.0-6.0); HEMATOCRIT 45.6 % (41-53); HEMOGLOBIN 15.6 g/dL (13.5-17.5); LYMPHOCYTES # (AUTO) 1.9 K/uL (1.0-4.8); LYMPHOCYTES % (AUTO) 29.6 % (22.0-44.0); MEAN CORPUSCULAR HEMOGLOBIN 32.2 pg (26.0-34.0); MEAN CORPUSCULAR HGB CONC 34.1 G/dL (31.0-37.0); MEAN CORPUSCULAR VOLUME 94 fL (80-100); MONOCYTES # (AUTO) 0.4 K/uL (0.1-1.0); MONOCYTES % (AUTO) 6.1 % (2.0-9.0); NEUTROPHILS % (AUTO) 60.8 % (40.0-70.0); PLATELET COUNT (AUTO) 250 K/uL (150-450); RED BLOOD CELL COUNT(AUTO) 4.84 MIL/uL (4.50-5.90)
[2019-06-29 08:00] VITALS: BP 114/86
[2019-06-29 08:14] LABS: HEMOGLOBIN A1C 4.9 % (4.5-6.2)
[2019-06-29 08:29] LABS: ALANINE AMINOTRANSFERASE 22 U/L (12-78); ALBUMIN 3.8 g/dL (3.4-5.0); ALKALINE PHOSPHATASE 73 U/L (46-116); ANION GAP 7 mmol/L (8-16); ASPARTATE AMINOTRANSFERASE 16 U/L (15-37); BILIRUBIN,TOTAL 0.4 mg/dL (0.1-1.0); CALCIUM, TOTAL 8.8 mg/dL (8.8-10.5); CARBON DIOXIDE 29 mmol/L (22-29); CHLORIDE 104 mmol/L (98-107); CHOL/HDL RATIO 3.1 (4.2-7.3); CHOLESTEROL 162 mg/dL (131-200); CREATININE 0.96 mg/dL (0.60-1.30); GLOMERULAR FILTR. RATE CALC > 60 mL/min (>60); GLUCOSE,RANDOM 101 mg/dL (70-110); HDL CHOLESTEROL 52 mg/dL (40-60); LDL CHOL (CALC.) 85 mg/dL (0-130); POTASSIUM 4.4 mmol/L (3.5-5.1); SODIUM SERUM 140 mmol/L (136-145); THYROID STIMULATING HORMONE 1.17 uIU/mL (0.36-3.74); TOTAL PROTEIN, SERUM 7.4 g/dL (6.4-8.2); TRIGLYCERIDES 127 mg/dL (15-150); UREA NITROGEN, BLOOD 17 mg/dL (7-18)
[2019-06-29] MEDS: FLUoxetine HCL 10 MG CAPSULE PO SCH (09:43)
[2019-06-29] MEDS: NICOTINE 14 MG/24 HOUR PATCH TD SCH (09:43)
[2019-06-29] MEDS: GABAPENTIN 400 MG CAPSULE PO SCH ×2 (09:43→12:14)
[2019-06-29] MEDS: OLANZapine 10 MG TABLET PO SCH (09:43)
[2019-06-29] MEDS: LORazepam 2 MG TABLET PO PRN (09:44)
== END 2019-06-29 16:00 | disposition home or self-care (01) | DRG 750 ==
LOC: EMS 23:51 → B3A 06-23 04:30
PROVIDERS: ADMIT Psychiatry & Neurology Child & Adolescent Psychiatry; ATTEND Psychiatry & Neurology Child & Adolescent Psychiatry
DX: F25.1 Schizoaffective disorder, depressive type (principal); R45.851 Suicidal ideations; Z59.0 Homelessness; E78.5 Hyperlipidemia, unspecified; F15.10 Other stimulant abuse, uncomplicated; F17.200 Nicotine dependence, unspecified, uncomplicated; F41.0 Panic disorder [episodic paroxysmal anxiety]; I10 Essential (primary) hypertension; F13.10 Sedative, hypnotic or anxiolytic abuse, uncomplicated; F11.10 Opioid abuse, uncomplicated; Z79.899 Other long term (current) drug therapy; Z91.14 Patient's other noncompliance with medication regimen; Z91.19 Patient's noncompliance with other medical treatment and regimen; Z71.51 Drug abuse counseling and surveillance of drug abuser
CPT/HCPCS: 83036; 84443; 87081; G0480

== ENCOUNTER 2019-07-06 07:18 | Inpatient (IN) | payer MEDICAID, OTHER ==
[~2019-07-06] VITALS: Ht 172.7 cm; Wt 78.6 kg
[2019-07-06 07:55] LABS: BASOPHILS % (AUTO) 0.3 % (0.0-2.0); EOSINOPHILS % (AUTO) 1.5 % (1.0-6.0); HEMATOCRIT 40.1 % (41-53); HEMOGLOBIN 13.9 g/dL (13.5-17.5); LYMPHOCYTES # (AUTO) 1.4 K/uL (1.0-4.8); LYMPHOCYTES % (AUTO) 14.5 % (22.0-44.0); MEAN CORPUSCULAR HEMOGLOBIN 32.5 pg (26.0-34.0); MEAN CORPUSCULAR HGB CONC 34.6 G/dL (31.0-37.0); MEAN CORPUSCULAR VOLUME 94 fL (80-100); MONOCYTES # (AUTO) 0.5 K/uL (0.1-1.0); MONOCYTES % (AUTO) 5.2 % (2.0-9.0); NEUTROPHILS # (AUTO) 7.8 K/uL (1.8-7.7); NEUTROPHILS % (AUTO) 78.5 % (40.0-70.0); PLATELET COUNT (AUTO) 290 K/uL (150-450); RED BLOOD CELL COUNT(AUTO) 4.28 MIL/uL (4.50-5.90); RED CELL DISTRIBUTION WIDTH 13.5 % (11.5-14.5)
[2019-07-06] MEDS ORDERED: CEPH250 PO (07:58)
[2019-07-06] MEDS ORDERED: DOXY100C PO (07:58)
[2019-07-06 08:09] LABS: ANION GAP 7 mmol/L (8-16); CALCIUM, TOTAL 9.1 mg/dL (8.8-10.5); CARBON DIOXIDE 29 mmol/L (22-29); CHLORIDE 104 mmol/L (98-107); CREATININE 0.95 mg/dL (0.60-1.30); GLOMERULAR FILTR. RATE CALC > 60 mL/min (>60); GLUCOSE,RANDOM 101 mg/dL (70-110); POTASSIUM 4.5 mmol/L (3.5-5.1); SODIUM SERUM 140 mmol/L (136-145); UREA NITROGEN, BLOOD 10 mg/dL (7-18)
[2019-07-06 08:14] LABS: ALANINE AMINOTRANSFERASE 24 U/L (12-78); ALBUMIN 3.2 g/dL (3.4-5.0); ALKALINE PHOSPHATASE 72 U/L (46-116); ASPARTATE AMINOTRANSFERASE 18 U/L (15-37); BILIRUBIN,TOTAL 0.4 mg/dL (0.1-1.0); TOTAL PROTEIN, SERUM 7.6 g/dL (6.4-8.2)
[2019-07-06 09:30] LABS: AMPHET/METH SCREEN,URINE NEGATIVE (NEGATIVE); BARBITURATE SCREEN, URINE NEGATIVE (NEGATIVE); BENZODIAZEPINES SCREEN,URINE NEGATIVE (NEGATIVE); CANNABINOID SCREEN,URINE POSITIVE (NEGATIVE); COCAINE SCREEN,URINE NEGATIVE (NEGATIVE); METHADONE SCREEN, URINE NEGATIVE (NEGATIVE); OPIATE SCREEN,URINE POSITIVE (NEGATIVE); PHENCYCLIDINE SCREEN,URINE NEGATIVE (NEGATIVE)
[2019-07-06] MEDS ORDERED: OLANZapine 5 MG TABLET PO ONE (09:45)
[2019-07-06] MEDS ORDERED: IBUPROFEN 600 MG TABLET PO ONE (09:45)
[2019-07-06] MEDS ORDERED: ACETAMINOPHEN 500 MG TABLET PO ONE (09:45)
[2019-07-06] MEDS ORDERED: OLANZapine 5 MG RAPDIS TABLET PO PRN (11:15)
[2019-07-06 20:21] VITALS: BP 106/66
[2019-07-06] MEDS: ZOLPIDEM TARTRATE 10 MG TABLET PO PRN (20:52)
[2019-07-07 01:45] VITALS: BP 118/73
[2019-07-07] MEDS: LORazepam 2 MG TABLET PO PRN (01:51)
[2019-07-07 08:49] VITALS: BP 122/68
[2019-07-07] MEDS: NYSTATIN 30 GM CREAM TP SCH ×2 (08:54→17:03)
[2019-07-07] MEDS ORDERED: MAGNESIUM HYDROXIDE SUSPENSION 30 ML UDCUP PO PRN (09:45)
[2019-07-07] MEDS ORDERED: LOPERAMIDE HCL 2 MG CAPSULE PO PRN (09:45)
[2019-07-07] MEDS ORDERED: MAG HYDROX/AL HYDROX/SIMETH ES 30 ML SUSPENSION UDCUP PO PRN (09:45)
[2019-07-07] MEDS ORDERED: PETROLATUM,WHITE 28 GM JELLY TP PRN (09:45)
[2019-07-07] MEDS ORDERED: GuaiFENesin/D-METHORPHAN [SUGAR-FREE] 200-20MG/10 ML SYRUP UDCUP PO PRN (09:45)
[2019-07-07] MEDS ORDERED: DOCUSATE SODIUM 100 MG CAPSULE PO PRN (09:45)
[2019-07-07] MEDS ORDERED: ALBUTEROL SULFATE HFA 90 MCG/PUFF 8 GM INHALER IH PRN (09:45)
[2019-07-07] MEDS ORDERED: ONDANSETRON HCL 4 MG TABLET PO PRN (09:45)
[2019-07-07] MEDS ORDERED: CloNIDine HCL 0.1 MG TABLET PO PRN (09:45)
[2019-07-07] MEDS: FLUoxetine HCL 20 MG CAPSULE PO SCH (10:54)
[2019-07-07] MEDS: OLANZapine 10 MG TABLET PO SCH ×2 (10:54→20:16)
[2019-07-07 10:55] VITALS: BP 118/72
[2019-07-07] MEDS: IBUPROFEN 400 MG TABLET PO PRN (10:55)
[2019-07-07] MEDS: GABAPENTIN 400 MG CAPSULE PO SCH ×2 (12:09→17:02)
[2019-07-07 17:34] VITALS: BP 123/68
[2019-07-07] MEDS: TraZODone HCL 50 MG TABLET PO SCH (20:16)
[2019-07-08] MEDS: IBUPROFEN 400 MG TABLET PO PRN ×2 (03:38→14:16)
[2019-07-08 03:40] VITALS: BP 129/89
[2019-07-08 08:22] VITALS: BP 110/70
[2019-07-08] MEDS: GABAPENTIN 400 MG CAPSULE PO SCH ×3 (08:22→16:45)
[2019-07-08] MEDS: FLUoxetine HCL 20 MG CAPSULE PO SCH (08:22)
[2019-07-08] MEDS: OLANZapine 10 MG TABLET PO SCH ×2 (08:22→20:23)
[2019-07-08] MEDS: NYSTATIN 30 GM CREAM TP SCH ×2 (08:23→16:46)
[2019-07-08 09:13] LABS: CHOL/HDL RATIO 3.5 (4.2-7.3)
[2019-07-08 09:33] LABS: THYROID STIMULATING HORMONE 0.36 uIU/mL (0.36-3.74)
[2019-07-08 14:16] VITALS: BP 114/74
[2019-07-08 16:16] VITALS: BP 110/59
[2019-07-08] MEDS: TraZODone HCL 50 MG TABLET PO SCH (20:21)
[2019-07-08] MEDS: ZOLPIDEM TARTRATE 10 MG TABLET PO PRN (21:00)
[2019-07-09 01:58] VITALS: BP 128/76
[2019-07-09 04:10] VITALS: BP 112/80
[2019-07-09] MEDS: IBUPROFEN 400 MG TABLET PO PRN (04:13)
[2019-07-09] MEDS: FLUoxetine HCL 20 MG CAPSULE PO SCH (08:06)
[2019-07-09] MEDS: GABAPENTIN 400 MG CAPSULE PO SCH ×3 (08:06→16:09)
[2019-07-09] MEDS: OLANZapine 10 MG TABLET PO SCH ×2 (08:06→20:15)
[2019-07-09] MEDS: NYSTATIN 30 GM CREAM TP SCH ×2 (08:07→16:09)
[2019-07-09] MEDS: NICOTINE 14 MG/24 HOUR PATCH TD PRN (08:23)
[2019-07-09 08:32] VITALS: BP 131/83
[2019-07-09 16:08] VITALS: BP 111/69
[2019-07-09] MEDS: BACITRACIN 28.4 GM OINTMENT TP SCH (16:54)
[2019-07-09] MEDS: TraZODone HCL 50 MG TABLET PO SCH (20:15)
[2019-07-10] MEDS: IBUPROFEN 400 MG TABLET PO PRN (05:33)
[2019-07-10 05:40] VITALS: BP 136/69
[2019-07-10 08:04] VITALS: BP 103/67
[2019-07-10] MEDS: FLUoxetine HCL 20 MG CAPSULE PO SCH (08:13)
[2019-07-10] MEDS: GABAPENTIN 400 MG CAPSULE PO SCH ×3 (08:13→16:40)
[2019-07-10] MEDS: OLANZapine 10 MG TABLET PO SCH ×2 (08:13→20:07)
[2019-07-10] MEDS: NYSTATIN 30 GM CREAM TP SCH ×2 (08:14→16:43)
[2019-07-10] MEDS: BACITRACIN 28.4 GM OINTMENT TP SCH ×2 (08:14→16:40)
[2019-07-10 16:05] VITALS: BP 101/60
[2019-07-10] MEDS: TraZODone HCL 50 MG TABLET PO SCH (20:07)
[2019-07-11] VITALS: BP 103/65
[2019-07-11] MEDS: IBUPROFEN 400 MG TABLET PO PRN (05:50)
[2019-07-11 05:53] VITALS: BP 106/72
[2019-07-11] MEDS: NYSTATIN 30 GM CREAM TP SCH ×2 (08:08→16:17)
[2019-07-11] MEDS: OLANZapine 10 MG TABLET PO SCH ×2 (08:08→20:17)
[2019-07-11] MEDS: GABAPENTIN 400 MG CAPSULE PO SCH ×3 (08:08→16:16)
[2019-07-11] MEDS: BACITRACIN 28.4 GM OINTMENT TP SCH ×2 (08:08→16:17)
[2019-07-11] MEDS: FLUoxetine HCL 20 MG CAPSULE PO SCH (08:08)
[2019-07-11 08:21] VITALS: BP 117/65
[2019-07-11] MEDS: NICOTINE 14 MG/24 HOUR PATCH TD PRN (08:23)
[2019-07-11 10:12] VITALS: BP 112/68
[2019-07-11] MEDS: ACETAMINOPHEN 325 MG TABLET PO PRN (10:12)
[2019-07-11] MEDS: LORazepam 2 MG TABLET PO PRN (14:16)
[2019-07-11 16:09] VITALS: BP 115/85
[2019-07-11] MEDS: TraZODone HCL 50 MG TABLET PO SCH (20:18)
[2019-07-12] MEDS: IBUPROFEN 400 MG TABLET PO PRN ×2 (04:41→14:17)
[2019-07-12 04:43] VITALS: BP 138/70
[2019-07-12 08:12] VITALS: BP 126/67
[2019-07-12] MEDS: FLUoxetine HCL 20 MG CAPSULE PO SCH (08:23)
[2019-07-12] MEDS: NYSTATIN 30 GM CREAM TP SCH ×2 (08:23→16:36)
[2019-07-12] MEDS: GABAPENTIN 400 MG CAPSULE PO SCH ×3 (08:23→16:34)
[2019-07-12] MEDS: OLANZapine 10 MG TABLET PO SCH ×2 (08:23→20:28)
[2019-07-12] MEDS: BACITRACIN 28.4 GM OINTMENT TP SCH ×2 (08:24→16:37)
[2019-07-12] MEDS: NICOTINE 14 MG/24 HOUR PATCH TD PRN (08:57)
[2019-07-12] MEDS: ACETAMINOPHEN 325 MG TABLET PO PRN (16:34)
[2019-07-12 16:41] VITALS: BP 122/60
[2019-07-12] MEDS: TraZODone HCL 50 MG TABLET PO SCH (20:28)
[2019-07-13 03:38] VITALS: BP 100/60
[2019-07-13 06:30] VITALS: BP 110/68
[2019-07-13] MEDS: IBUPROFEN 400 MG TABLET PO PRN (06:31)
[2019-07-13 08:14] VITALS: BP 111/65
[2019-07-13] MEDS: GABAPENTIN 400 MG CAPSULE PO SCH ×3 (08:22→16:06)
[2019-07-13] MEDS: FLUoxetine HCL 20 MG CAPSULE PO SCH (08:22)
[2019-07-13] MEDS: BACITRACIN 28.4 GM OINTMENT TP SCH ×2 (08:22→16:17)
[2019-07-13] MEDS: OLANZapine 10 MG TABLET PO SCH ×2 (08:22→20:13)
[2019-07-13] MEDS: NYSTATIN 30 GM CREAM TP SCH ×2 (08:23→16:18)
[2019-07-13] MEDS: NICOTINE 14 MG/24 HOUR PATCH TD PRN (10:00)
[2019-07-13 16:08] VITALS: BP 126/77
[2019-07-13] MEDS: TraZODone HCL 50 MG TABLET PO SCH (20:14)
[2019-07-14 01:07] VITALS: BP 100/60
[2019-07-14 04:20] VITALS: BP 104/68
[2019-07-14] MEDS: IBUPROFEN 400 MG TABLET PO PRN (04:23)
[2019-07-14] MEDS ORDERED: FLUO-191 PO (07:47)
[2019-07-14] MEDS ORDERED: TRAZ-252 PO (07:47)
[2019-07-14] MEDS ORDERED: BACI30OI6 TP (07:48)
[2019-07-14] MEDS ORDERED: NYST15PO3 TP (07:48)
[2019-07-14] MEDS: GABAPENTIN 400 MG CAPSULE PO SCH (08:08)
[2019-07-14] MEDS: OLANZapine 10 MG TABLET PO SCH (08:08)
[2019-07-14] MEDS: FLUoxetine HCL 20 MG CAPSULE PO SCH (08:08)
[2019-07-14] MEDS: BACITRACIN 28.4 GM OINTMENT TP SCH (08:09)
[2019-07-14] MEDS: NYSTATIN 30 GM CREAM TP SCH (08:09)
[2019-07-14 08:17] VITALS: BP 111/67
== END 2019-07-14 10:00 | disposition home or self-care (01) | DRG 750 ==
LOC: EMS 07:20 → B2S 11:45
PROVIDERS: ADMIT Psychiatry & Neurology Child & Adolescent Psychiatry; ATTEND Psychiatry & Neurology Child & Adolescent Psychiatry
DX: F25.1 Schizoaffective disorder, depressive type (principal); R45.851 Suicidal ideations; Z59.0 Homelessness; E78.00 Pure hypercholesterolemia, unspecified; E78.5 Hyperlipidemia, unspecified; F10.10 Alcohol abuse, uncomplicated; Y90.9 Presence of alcohol in blood, level not specified; F12.90 Cannabis use, unspecified, uncomplicated; F15.90 Other stimulant use, unspecified, uncomplicated; F17.200 Nicotine dependence, unspecified, uncomplicated; I10 Essential (primary) hypertension; Z91.14 Patient's other noncompliance with medication regimen
CPT/HCPCS: 83036; 84443; 87081; G0480

== ENCOUNTER 2019-09-15 10:31 | Inpatient (IN) | payer MEDICAID ==
[~2019-09-15] VITALS: Ht 172.7 cm; Wt 77.6 kg
[~2019-09-15 10:31] MED LIST changes: +AMLO5TAB9 PO; +FLUO-191 PO; -GABA-533 PO; -PROZ10 PO; +TRAZ-252 PO
[2019-09-15] MEDS ORDERED: LORazepam 2 MG TABLET PO PRN (11:45)
[2019-09-15] MEDS ORDERED: HALOPERIDOL 5 MG TABLET PO PRN (11:45)
[2019-09-15 12:29] VITALS: BP 103/79
[2019-09-15] MEDS ORDERED: GuaiFENesin/D-METHORPHAN/PHENYLEPH 5 ML LIQUID ORAL.SYG PO PRN (12:45)
[2019-09-15] MEDS ORDERED: -PHARMACY VACCINE NOTE- MISC ONE (13:15)
[2019-09-15] MEDS ORDERED: LOPERAMIDE HCL 2 MG CAPSULE PO PRN (16:00)
[2019-09-15] MEDS ORDERED: ONDANSETRON HCL 4 MG TABLET PO PRN (16:00)
[2019-09-15] MEDS ORDERED: NICOTINE 14 MG/24 HOUR PATCH TD PRN (16:00)
[2019-09-15] MEDS ORDERED: ALBUTEROL SULFATE HFA 90 MCG/PUFF 8 GM INHALER IH PRN (16:00)
[2019-09-15] MEDS ORDERED: CloNIDine HCL 0.1 MG TABLET PO PRN (16:00)
[2019-09-15] MEDS ORDERED: PETROLATUM,WHITE 28 GM JELLY TP PRN (16:00)
[2019-09-15] MEDS ORDERED: MAGNESIUM HYDROXIDE SUSPENSION 30 ML UDCUP PO PRN (16:00)
[2019-09-15] MEDS ORDERED: DOCUSATE SODIUM 100 MG CAPSULE PO PRN (16:00)
[2019-09-15] MEDS ORDERED: MAG HYDROX/AL HYDROX/SIMETH ES 30 ML SUSPENSION UDCUP PO PRN (16:00)
[2019-09-15 16:12] VITALS: BP 110/61
[2019-09-16] MEDS: ACETAMINOPHEN 325 MG TABLET PO PRN ×3 (01:14→21:33)
[2019-09-16 01:18] VITALS: BP 107/68
[2019-09-16 08:43] LABS: BASOPHILS % (AUTO) 0.4 % (0.0-2.0); EOSINOPHILS % (AUTO) 0.9 % (1.0-6.0); HEMATOCRIT 39.2 % (41-53); HEMOGLOBIN 13.1 g/dL (13.5-17.5); LYMPHOCYTES # (AUTO) 1.3 K/uL (1.0-4.8); LYMPHOCYTES % (AUTO) 16.5 % (22.0-44.0); MEAN CORPUSCULAR HGB CONC 33.5 G/dL (31.0-37.0); MEAN CORPUSCULAR VOLUME 93 fL (80-100); MONOCYTES # (AUTO) 0.7 K/uL (0.1-1.0); MONOCYTES % (AUTO) 9.8 % (2.0-9.0); NEUTROPHILS # (AUTO) 5.5 K/uL (1.8-7.7); NEUTROPHILS % (AUTO) 72.4 % (40.0-70.0); PLATELET COUNT (AUTO) 196 K/uL (150-450); RED BLOOD CELL COUNT(AUTO) 4.23 MIL/uL (4.50-5.90); RED CELL DISTRIBUTION WIDTH 14.1 % (11.5-14.5)
[2019-09-16 08:51] VITALS: BP 147/74
[2019-09-16 08:59] LABS: APPEARANCE,URINE CLEAR (CLEAR); BILIRUBIN,URINE NEGATIVE (NEGATIVE); GLUCOSE, URINE (UA) NEGATIVE (NEGATIVE); KETONES,URINE 15 mg/dL (NEGATIVE); LEUKOCYTE ESTERASE ,URINE NEGATIVE (NEGATIVE); NITRATE,URINE NEGATIVE (NEGATIVE); OCCULT BLOOD,URINE NEGATIVE (NEGATIVE); PH,URINE 5.5 (5.0-8.0); PROTEIN,URINE NEGATIVE (NEGATIVE)
[2019-09-16] MEDS ORDERED: AmLODIPine BESYLATE 5 MG TABLET PO SCH (09:00)
[2019-09-16 09:01] LABS: AMPHET/METH SCREEN,URINE POSITIVE (NEGATIVE); BARBITURATE SCREEN, URINE NEGATIVE (NEGATIVE); BENZODIAZEPINES SCREEN,URINE NEGATIVE (NEGATIVE); CANNABINOID SCREEN,URINE NEGATIVE (NEGATIVE); COCAINE SCREEN,URINE NEGATIVE (NEGATIVE); METHADONE SCREEN, URINE NEGATIVE (NEGATIVE); OPIATE SCREEN,URINE NEGATIVE (NEGATIVE)
[2019-09-16 09:03] LABS: PHENCYCLIDINE SCREEN,URINE NEGATIVE (NEGATIVE)
[2019-09-16 09:10] LABS: HEMOGLOBIN A1C 5.5 % (4.5-6.2)
[2019-09-16] MEDS: NICOTINE 14 MG/24 HOUR PATCH TD SCH (09:18)
[2019-09-16] MEDS: AmLODIPine BESYLATE 5 MG TABLET PO SCH (09:18)
[2019-09-16] MEDS: IBUPROFEN 400 MG TABLET PO PRN ×2 (09:19→21:33)
[2019-09-16 09:37] LABS: ALANINE AMINOTRANSFERASE 26 U/L (12-78); ALBUMIN 3.4 g/dL (3.4-5.0); ALKALINE PHOSPHATASE 71 U/L (46-116); ANION GAP 9 mmol/L (8-16); ASPARTATE AMINOTRANSFERASE 23 U/L (15-37); BILIRUBIN,TOTAL 0.6 mg/dL (0.1-1.0); CALCIUM, TOTAL 8.4 mg/dL (8.8-10.5); CARBON DIOXIDE 27 mmol/L (22-29); CHLORIDE 103 mmol/L (98-107); CHOL/HDL RATIO 2.1 (4.2-7.3); CHOLESTEROL 133 mg/dL (131-200); CREATININE 0.97 mg/dL (0.60-1.30); FREE T4 (FREE THYROXINE) 1.07 ng/dL (0.76-1.46); GLOMERULAR FILTR. RATE CALC > 60 mL/min (>60); GLUCOSE,RANDOM 86 mg/dL (70-110); HDL CHOLESTEROL 63 mg/dL (40-60); LDL CHOL (CALC.) 58 mg/dL (0-130); SODIUM SERUM 139 mmol/L (136-145); THYROID STIMULATING HORMONE 0.13 uIU/mL (0.36-3.74); TOTAL PROTEIN, SERUM 6.2 g/dL (6.4-8.2); TRIGLYCERIDES 62 mg/dL (15-150); UREA NITROGEN, BLOOD 12 mg/dL (7-18)
[2019-09-16 10:19] VITALS: BP 136/80
[2019-09-16] MEDS: OLANZapine 10 MG TABLET PO SCH ×2 (10:32→20:35)
[2019-09-16] MEDS: FLUoxetine HCL 20 MG CAPSULE PO SCH (10:32)
[2019-09-16] MEDS: LEVOFLOXACIN 250 MG TABLET PO SCH (13:08)
[2019-09-16 16:20] VITALS: BP 135/75
[2019-09-16] MEDS: TraZODone HCL 50 MG TABLET PO SCH (20:34)
[2019-09-16 21:30] VITALS: BP 132/66
[2019-09-17 00:32] VITALS: BP 132/73
[2019-09-17 08:33] VITALS: BP 133/69
[2019-09-17] MEDS: NICOTINE 14 MG/24 HOUR PATCH TD SCH (09:33)
[2019-09-17] MEDS: OLANZapine 10 MG TABLET PO SCH ×2 (09:34→20:33)
[2019-09-17] MEDS: AmLODIPine BESYLATE 5 MG TABLET PO SCH (09:34)
[2019-09-17] MEDS: LEVOFLOXACIN 250 MG TABLET PO SCH (09:34)
[2019-09-17] MEDS: FLUoxetine HCL 20 MG CAPSULE PO SCH (09:34)
[2019-09-17] MEDS: ACETAMINOPHEN 325 MG TABLET PO PRN (16:07)
[2019-09-17 20:09] VITALS: BP 118/82
[2019-09-17] MEDS: TraZODone HCL 50 MG TABLET PO SCH (20:33)
[2019-09-17] MEDS: GuaiFENesin/D-METHORPHAN [SUGAR-FREE] 200-20MG/10 ML SYRUP UDCUP PO PRN (20:33)
[2019-09-18 01:14] VITALS: BP 104/69
[2019-09-18 09:31] VITALS: BP 109/67
[2019-09-18] MEDS: LEVOFLOXACIN 250 MG TABLET PO SCH (10:03)
[2019-09-18] MEDS: FLUoxetine HCL 20 MG CAPSULE PO SCH (10:04)
[2019-09-18] MEDS: OLANZapine 10 MG TABLET PO SCH ×2 (10:04→20:32)
[2019-09-18] MEDS: NICOTINE 14 MG/24 HOUR PATCH TD SCH (10:04)
[2019-09-18] MEDS: AmLODIPine BESYLATE 5 MG TABLET PO SCH (10:04)
[2019-09-18 16:39] VITALS: BP 117/65
[2019-09-18] MEDS: TraZODone HCL 50 MG TABLET PO SCH (20:32)
[2019-09-19 01:27] VITALS: BP 110/70
[2019-09-19 06:59] VITALS: BP 115/70
[2019-09-19] MEDS: IBUPROFEN 400 MG TABLET PO PRN ×2 (07:05→17:14)
[2019-09-19] MEDS: AmLODIPine BESYLATE 5 MG TABLET PO SCH (08:45)
[2019-09-19] MEDS: FLUoxetine HCL 20 MG CAPSULE PO SCH (08:45)
[2019-09-19] MEDS: LEVOFLOXACIN 250 MG TABLET PO SCH (08:45)
[2019-09-19] MEDS: NICOTINE 14 MG/24 HOUR PATCH TD SCH (08:45)
[2019-09-19] MEDS: OLANZapine 10 MG TABLET PO SCH ×2 (08:46→20:20)
[2019-09-19 09:22] VITALS: BP 117/69
[2019-09-19 16:33] VITALS: BP 110/73
[2019-09-19] MEDS: TraZODone HCL 50 MG TABLET PO SCH (20:20)
[2019-09-20] MEDS: GuaiFENesin/D-METHORPHAN [SUGAR-FREE] 200-20MG/10 ML SYRUP UDCUP PO PRN (03:11)
[2019-09-20 06:37] VITALS: BP 118/70
[2019-09-20] MEDS: IBUPROFEN 400 MG TABLET PO PRN (06:38)
[2019-09-20] MEDS: NICOTINE 14 MG/24 HOUR PATCH TD SCH (09:09)
[2019-09-20] MEDS: LEVOFLOXACIN 250 MG TABLET PO SCH (09:10)
[2019-09-20] MEDS: OLANZapine 10 MG TABLET PO SCH (09:10)
[2019-09-20] MEDS: AmLODIPine BESYLATE 5 MG TABLET PO SCH (09:10)
[2019-09-20] MEDS: FLUoxetine HCL 20 MG CAPSULE PO SCH (09:10)
[2019-09-20 09:16] VITALS: BP 130/70
[2019-09-20] MEDS ORDERED: OLAN10TA20 PO (09:57)
[2019-09-20] MEDS ORDERED: TRAZ-252 PO (09:57)
[2019-09-20] MEDS ORDERED: FLUO-191 PO (09:57)
== END 2019-09-20 12:05 | disposition home or self-care (01) | DRG 750 ==
LOC: B2S 11:00
PROVIDERS: ADMIT Psychiatry & Neurology Psychiatry
DX: F25.1 Schizoaffective disorder, depressive type (principal); R45.851 Suicidal ideations; Z59.0 Homelessness; E78.00 Pure hypercholesterolemia, unspecified; I10 Essential (primary) hypertension; E78.5 Hyperlipidemia, unspecified; F19.10 Other psychoactive substance abuse, uncomplicated; F15.10 Other stimulant abuse, uncomplicated; F12.90 Cannabis use, unspecified, uncomplicated; F41.9 Anxiety disorder, unspecified
CPT/HCPCS: 83036; 84439; 84443; 87081

== ENCOUNTER 2019-09-24 13:14 | Emergency (ER) | payer MEDICAID, OTHER ==
[~2019-09-24] VITALS: Ht 170.2 cm; Wt 81.8 kg
[2019-09-24 14:54] LABS: AMPHET/METH SCREEN,URINE POSITIVE (NEGATIVE); BARBITURATE SCREEN, URINE NEGATIVE (NEGATIVE); BENZODIAZEPINES SCREEN,URINE NEGATIVE (NEGATIVE); CANNABINOID SCREEN,URINE NEGATIVE (NEGATIVE); COCAINE SCREEN,URINE NEGATIVE (NEGATIVE); METHADONE SCREEN, URINE NEGATIVE (NEGATIVE); OPIATE SCREEN,URINE NEGATIVE (NEGATIVE)
[2019-09-24 14:58] LABS: PHENCYCLIDINE SCREEN,URINE NEGATIVE (NEGATIVE)
[2019-09-24 15:00] LABS: BASOPHILS % (AUTO) 0.4 % (0.0-2.0); EOSINOPHILS % (AUTO) 2.5 % (1.0-6.0); HEMATOCRIT 41.2 % (41-53); HEMOGLOBIN 14.2 g/dL (13.5-17.5); LYMPHOCYTES # (AUTO) 2.3 K/uL (1.0-4.8); LYMPHOCYTES % (AUTO) 33.5 % (22.0-44.0); MEAN CORPUSCULAR HEMOGLOBIN 31.3 pg (26.0-34.0); MEAN CORPUSCULAR HGB CONC 34.5 G/dL (31.0-37.0); MEAN CORPUSCULAR VOLUME 91 fL (80-100); MONOCYTES # (AUTO) 0.5 K/uL (0.1-1.0); NEUTROPHILS # (AUTO) 3.8 K/uL (1.8-7.7); NEUTROPHILS % (AUTO) 56.6 % (40.0-70.0); PLATELET COUNT (AUTO) 296 K/uL (150-450); RED BLOOD CELL COUNT(AUTO) 4.54 MIL/uL (4.50-5.90); RED CELL DISTRIBUTION WIDTH 13.5 % (11.5-14.5)
[2019-09-24 15:11] LABS: ANION GAP 6 mmol/L (8-16); CALCIUM, TOTAL 8.9 mg/dL (8.8-10.5); CARBON DIOXIDE 30 mmol/L (22-29); CHLORIDE 102 mmol/L (98-107); CREATININE 1.05 mg/dL (0.60-1.30); GLOMERULAR FILTR. RATE CALC > 60 mL/min (>60); GLUCOSE,RANDOM 82 mg/dL (70-110); POTASSIUM 4.8 mmol/L (3.5-5.1); SODIUM SERUM 138 mmol/L (136-145); UREA NITROGEN, BLOOD 21 mg/dL (7-18)
[2019-09-24 15:19] LABS: ALANINE AMINOTRANSFERASE 33 U/L (12-78); ALBUMIN 3.6 g/dL (3.4-5.0); ALKALINE PHOSPHATASE 70 U/L (46-116); ASPARTATE AMINOTRANSFERASE 40 U/L (15-37); BILIRUBIN,TOTAL 0.6 mg/dL (0.1-1.0); TOTAL PROTEIN, SERUM 6.8 g/dL (6.4-8.2)
[2019-09-24] MEDS ORDERED: OLANZapine 5 MG TABLET PO ONE (15:45)
[2019-09-24 15:55] VITALS: BP 122/76
== END 2019-09-24 16:15 | disposition home or self-care (01) ==
LOC: EMS 13:14
DX: F25.1 Schizoaffective disorder, depressive type (principal); F15.20 Other stimulant dependence, uncomplicated; E78.00 Pure hypercholesterolemia, unspecified; I10 Essential (primary) hypertension; F41.9 Anxiety disorder, unspecified; F32.9 Major depressive disorder, single episode, unspecified; F19.10 Other psychoactive substance abuse, uncomplicated; F17.210 Nicotine dependence, cigarettes, uncomplicated; F12.90 Cannabis use, unspecified, uncomplicated; Z79.899 Other long term (current) drug therapy; Z59.0 Homelessness
CPT/HCPCS: 36415; 80053; 80307; 85025; 99284; 99406; G0480

== ENCOUNTER 2019-10-10 12:50 | Inpatient (IN) | payer MEDICAID, OTHER ==
[~2019-10-10] VITALS: Ht 175.3 cm; Wt 77.6 kg
[2019-10-10] MEDS ORDERED: LORazepam 2 MG TABLET PO PRN (17:00)
[2019-10-10] MEDS ORDERED: ZOLPIDEM TARTRATE 10 MG TABLET PO PRN (17:00)
[2019-10-10] MEDS ORDERED: HALOPERIDOL 5 MG TABLET PO PRN (17:00)
[2019-10-10 18:00] VITALS: BP 115/72
[2019-10-10] MEDS ORDERED: INFLUENZA VIRUS VACCINE QVS 2019-20 (3YR+)/PF 60 MCG/0.5 ML SYRINGE IM ONE (18:45)
[2019-10-10] MEDS ORDERED: NICOTINE 21 MG/24 HOUR PATCH TD PRN (19:30)
[2019-10-11 06:12] VITALS: BP 113/61
[2019-10-11 07:27] LABS: BASOPHILS % (AUTO) 0.4 % (0.0-2.0); EOSINOPHILS % (AUTO) 3.5 % (1.0-6.0); HEMATOCRIT 38.5 % (41-53); HEMOGLOBIN 13.3 g/dL (13.5-17.5); LYMPHOCYTES # (AUTO) 1.7 K/uL (1.0-4.8); LYMPHOCYTES % (AUTO) 28.7 % (22.0-44.0); MEAN CORPUSCULAR HEMOGLOBIN 32.3 pg (26.0-34.0); MEAN CORPUSCULAR HGB CONC 34.4 G/dL (31.0-37.0); MEAN CORPUSCULAR VOLUME 94 fL (80-100); MONOCYTES # (AUTO) 0.5 K/uL (0.1-1.0); MONOCYTES % (AUTO) 8.7 % (2.0-9.0); NEUTROPHILS # (AUTO) 3.5 K/uL (1.8-7.7); NEUTROPHILS % (AUTO) 58.7 % (40.0-70.0); PLATELET COUNT (AUTO) 181 K/uL (150-450); RED CELL DISTRIBUTION WIDTH 14.9 % (11.5-14.5)
[2019-10-11 07:54] LABS: APPEARANCE,URINE TURBID (CLEAR); GLUCOSE, URINE (UA) NEGATIVE (NEGATIVE); KETONES,URINE NEGATIVE (NEGATIVE); LEUKOCYTE ESTERASE ,URINE NEGATIVE (NEGATIVE); NITRATE,URINE NEGATIVE (NEGATIVE); OCCULT BLOOD,URINE NEGATIVE (NEGATIVE); PH,URINE 5.5 (5.0-8.0); PROTEIN,URINE NEGATIVE (NEGATIVE)
[2019-10-11 07:59] LABS: AMPHET/METH SCREEN,URINE POSITIVE (NEGATIVE); BARBITURATE SCREEN, URINE NEGATIVE (NEGATIVE); BENZODIAZEPINES SCREEN,URINE NEGATIVE (NEGATIVE); CANNABINOID SCREEN,URINE NEGATIVE (NEGATIVE); COCAINE SCREEN,URINE NEGATIVE (NEGATIVE); METHADONE SCREEN, URINE NEGATIVE (NEGATIVE); OPIATE SCREEN,URINE NEGATIVE (NEGATIVE); PHENCYCLIDINE SCREEN,URINE NEGATIVE (NEGATIVE)
[2019-10-11 07:59] LABS: ALANINE AMINOTRANSFERASE 29 U/L (12-78); ALKALINE PHOSPHATASE 54 U/L (46-116); ANION GAP 8 mmol/L (8-16); ASPARTATE AMINOTRANSFERASE 21 U/L (15-37); BILIRUBIN,TOTAL 0.4 mg/dL (0.1-1.0); CALCIUM, TOTAL 8.6 mg/dL (8.8-10.5); CARBON DIOXIDE 28 mmol/L (22-29); CHLORIDE 106 mmol/L (98-107); CHOL/HDL RATIO 2.5 (4.2-7.3); CHOLESTEROL 136 mg/dL (131-200); CREATININE 0.98 mg/dL (0.60-1.30); GLOMERULAR FILTR. RATE CALC > 60 mL/min (>60); GLUCOSE,RANDOM 99 mg/dL (70-110); HDL CHOLESTEROL 55 mg/dL (40-60); LDL CHOL (CALC.) 65 mg/dL (0-130); POTASSIUM 3.9 mmol/L (3.5-5.1); SODIUM SERUM 142 mmol/L (136-145); THYROID STIMULATING HORMONE 0.42 uIU/mL (0.36-3.74); TOTAL PROTEIN, SERUM 5.9 g/dL (6.4-8.2); TRIGLYCERIDES 81 mg/dL (15-150); UREA NITROGEN, BLOOD 12 mg/dL (7-18)
[2019-10-11 08:00] LABS: BILIRUBIN,URINE PRELIM. POSITIVE (NEGATIVE)
[2019-10-11 08:35] VITALS: BP 117/70
[2019-10-11] MEDS: OLANZapine 10 MG TABLET PO SCH ×2 (12:52→20:49)
[2019-10-11] MEDS: FLUoxetine HCL 20 MG CAPSULE PO SCH (12:53)
[2019-10-11] MEDS ORDERED: NICOTINE 14 MG/24 HOUR PATCH TD PRN (15:30)
[2019-10-11] MEDS ORDERED: LOPERAMIDE HCL 2 MG CAPSULE PO PRN (15:30)
[2019-10-11] MEDS ORDERED: MAGNESIUM HYDROXIDE SUSPENSION 30 ML UDCUP PO PRN (15:30)
[2019-10-11] MEDS ORDERED: ACETAMINOPHEN 325 MG TABLET PO PRN (15:30)
[2019-10-11] MEDS ORDERED: DOCUSATE SODIUM 100 MG CAPSULE PO PRN (15:30)
[2019-10-11] MEDS ORDERED: GuaiFENesin/D-METHORPHAN [SUGAR-FREE] 200-20MG/10 ML SYRUP UDCUP PO PRN (15:30)
[2019-10-11] MEDS ORDERED: ONDANSETRON HCL 4 MG TABLET PO PRN (15:30)
[2019-10-11] MEDS ORDERED: MAG HYDROX/AL HYDROX/SIMETH ES 30 ML SUSPENSION UDCUP PO PRN (15:30)
[2019-10-11] MEDS ORDERED: PETROLATUM,WHITE 28 GM JELLY TP PRN (15:30)
[2019-10-11] MEDS ORDERED: ALBUTEROL SULFATE HFA 90 MCG/PUFF 8 GM INHALER IH PRN (15:30)
[2019-10-11] MEDS ORDERED: CloNIDine HCL 0.1 MG TABLET PO PRN (15:30)
[2019-10-11 16:21] VITALS: BP 110/60
[2019-10-11] MEDS: TraZODone HCL 50 MG TABLET PO SCH (20:49)
[2019-10-12 01:07] VITALS: BP 118/70
[2019-10-12 06:49] VITALS: BP 122/78
[2019-10-12] MEDS: IBUPROFEN 400 MG TABLET PO PRN (06:52)
[2019-10-12 08:10] VITALS: BP 117/66
[2019-10-12] MEDS: OLANZapine 10 MG TABLET PO SCH ×2 (09:00→20:17)
[2019-10-12] MEDS: FLUoxetine HCL 20 MG CAPSULE PO SCH (09:00)
[2019-10-12] MEDS: AmLODIPine BESYLATE 5 MG TABLET PO SCH (09:00)
[2019-10-12 16:19] VITALS: BP 103/72
[2019-10-12] MEDS: MUPIROCIN CALCIUM 2% 22 GM OINTMENT NASAL SCH (17:08)
[2019-10-12] MEDS: TraZODone HCL 50 MG TABLET PO SCH (20:17)
[2019-10-13 06:01] VITALS: BP 117/76
[2019-10-13] MEDS: IBUPROFEN 400 MG TABLET PO PRN ×2 (06:01→15:11)
[2019-10-13 08:24] VITALS: BP 111/74
[2019-10-13] MEDS: AmLODIPine BESYLATE 5 MG TABLET PO SCH (08:58)
[2019-10-13] MEDS: OLANZapine 10 MG TABLET PO SCH (08:58)
[2019-10-13] MEDS: FLUoxetine HCL 20 MG CAPSULE PO SCH (08:58)
[2019-10-13] MEDS: MUPIROCIN CALCIUM 2% 22 GM OINTMENT NASAL SCH (08:59)
[2019-10-13] MEDS ORDERED: FLUO-191 PO (15:09)
[2019-10-13] MEDS ORDERED: OLAN10TA20 PO (15:09)
[2019-10-13] MEDS ORDERED: TRAZ-252 PO (15:09)
[2019-10-13] MEDS ORDERED: MUPI1OIN5 TP (15:52)
== END 2019-10-13 16:50 | disposition home or self-care (01) | DRG 750 ==
LOC: B2S 18:29
PROVIDERS: ADMIT Psychiatry & Neurology Psychiatry
DX: F25.1 Schizoaffective disorder, depressive type (principal); F15.20 Other stimulant dependence, uncomplicated; R45.851 Suicidal ideations; D64.9 Anemia, unspecified; E78.5 Hyperlipidemia, unspecified; I10 Essential (primary) hypertension; F32.9 Major depressive disorder, single episode, unspecified; F19.10 Other psychoactive substance abuse, uncomplicated; Z59.0 Homelessness; Z79.899 Other long term (current) drug therapy; Z91.5 Personal history of self-harm; Z71.51 Drug abuse counseling and surveillance of drug abuser
CPT/HCPCS: 80307; 84439; 84443; 87081

== ENCOUNTER 2019-10-21 15:18 | Inpatient (IN) | payer MEDICAID ==
[~2019-10-21] VITALS: Ht 167.6 cm; Wt 78.6 kg
[~2019-10-21 15:18] MED LIST changes: +MUPI1OIN5 TP
[2019-10-21] MEDS ORDERED: TRAZ150 PO (15:53)
[2019-10-21] MEDS ORDERED: OLAN10TA3 PO (15:53)
[2019-10-21] MEDS ORDERED: FLUO-191 PO (15:53)
[2019-10-21] MEDS ORDERED: HALOPERIDOL 5 MG TABLET PO PRN (16:15)
[2019-10-21] MEDS ORDERED: LORazepam 2 MG TABLET PO PRN (16:15)
[2019-10-21] MEDS ORDERED: ZOLPIDEM TARTRATE 10 MG TABLET PO PRN (16:15)
[2019-10-21 16:30] VITALS: BP 121/74
[2019-10-21] MEDS ORDERED: -PHARMACY VACCINE NOTE- MISC ONE (16:30)
[2019-10-21 17:10] VITALS: BP 132/71
[2019-10-21] MEDS ORDERED: PETROLATUM,WHITE 28 GM JELLY TP PRN (21:00)
[2019-10-21] MEDS ORDERED: MAG HYDROX/AL HYDROX/SIMETH ES 30 ML SUSPENSION UDCUP PO PRN (21:00)
[2019-10-21] MEDS ORDERED: ALBUTEROL SULFATE HFA 90 MCG/PUFF 8 GM INHALER IH PRN (21:00)
[2019-10-21] MEDS ORDERED: GuaiFENesin/D-METHORPHAN [SUGAR-FREE] 200-20MG/10 ML SYRUP UDCUP PO PRN (21:00)
[2019-10-21] MEDS ORDERED: LOPERAMIDE HCL 2 MG CAPSULE PO PRN (21:00)
[2019-10-21] MEDS ORDERED: CloNIDine HCL 0.1 MG TABLET PO PRN (21:00)
[2019-10-21] MEDS ORDERED: ONDANSETRON HCL 4 MG TABLET PO PRN (21:00)
[2019-10-21] MEDS ORDERED: MAGNESIUM HYDROXIDE SUSPENSION 30 ML UDCUP PO PRN (21:00)
[2019-10-21] MEDS ORDERED: DOCUSATE SODIUM 100 MG CAPSULE PO PRN (21:00)
[2019-10-21] MEDS ORDERED: NICOTINE 14 MG/24 HOUR PATCH TD PRN (21:00)
[2019-10-22 06:04] VITALS: BP 128/71
[2019-10-22 07:46] LABS: BASOPHILS % (AUTO) 0.6 % (0.0-2.0); EOSINOPHILS % (AUTO) 2.4 % (1.0-6.0); HEMATOCRIT 42.1 % (41-53); HEMOGLOBIN 14.6 g/dL (13.5-17.5); LYMPHOCYTES # (AUTO) 2.3 K/uL (1.0-4.8); LYMPHOCYTES % (AUTO) 35.6 % (22.0-44.0); MEAN CORPUSCULAR HEMOGLOBIN 32.7 pg (26.0-34.0); MEAN CORPUSCULAR HGB CONC 34.7 G/dL (31.0-37.0); MEAN CORPUSCULAR VOLUME 94 fL (80-100); MONOCYTES # (AUTO) 0.5 K/uL (0.1-1.0); MONOCYTES % (AUTO) 7.5 % (2.0-9.0); NEUTROPHILS # (AUTO) 3.5 K/uL (1.8-7.7); NEUTROPHILS % (AUTO) 53.9 % (40.0-70.0); PLATELET COUNT (AUTO) 230 K/uL (150-450); RED BLOOD CELL COUNT(AUTO) 4.47 MIL/uL (4.50-5.90); RED CELL DISTRIBUTION WIDTH 14.9 % (11.5-14.5)
[2019-10-22 08:12] LABS: ALANINE AMINOTRANSFERASE 22 U/L (12-78); ALBUMIN 3.2 g/dL (3.4-5.0); ALKALINE PHOSPHATASE 57 U/L (46-116); ANION GAP 6 mmol/L (8-16); ASPARTATE AMINOTRANSFERASE 13 U/L (15-37); BILIRUBIN,TOTAL 0.2 mg/dL (0.1-1.0); CALCIUM, TOTAL 8.8 mg/dL (8.8-10.5); CARBON DIOXIDE 28 mmol/L (22-29); CHLORIDE 109 mmol/L (98-107); CHOL/HDL RATIO 2.8 (4.2-7.3); CHOLESTEROL 152 mg/dL (131-200); GLOMERULAR FILTR. RATE CALC > 60 mL/min (>60); GLUCOSE,RANDOM 101 mg/dL (70-110); HCG,QUANTITATIVE < 1 mIU/mL (0-6); HDL CHOLESTEROL 54 mg/dL (40-60); LDL CHOL (CALC.) 77 mg/dL (0-130); POTASSIUM 3.8 mmol/L (3.5-5.1); SODIUM SERUM 143 mmol/L (136-145); THYROID STIMULATING HORMONE 0.58 uIU/mL (0.36-3.74); TOTAL PROTEIN, SERUM 6.3 g/dL (6.4-8.2); TRIGLYCERIDES 103 mg/dL (15-150); UREA NITROGEN, BLOOD 13 mg/dL (7-18)
[2019-10-22 08:14] LABS: HEMOGLOBIN A1C 5.8 % (3.8-5.6)
[2019-10-22] MEDS: AmLODIPine BESYLATE 5 MG TABLET PO SCH (08:28)
[2019-10-22] MEDS: FLUoxetine HCL 20 MG CAPSULE PO SCH (08:59)
[2019-10-22] MEDS: OLANZapine 10 MG TABLET PO SCH ×2 (08:59→20:19)
[2019-10-22 09:26] VITALS: BP 123/75
[2019-10-22 16:14] VITALS: BP 120/80
[2019-10-22] MEDS: TraZODone HCL 50 MG TABLET PO SCH (20:19)
[2019-10-23 06:12] VITALS: BP 102/60
[2019-10-23 08:20] VITALS: BP 106/62
[2019-10-23] MEDS: IBUPROFEN 400 MG TABLET PO PRN (09:30)
[2019-10-23] MEDS: AmLODIPine BESYLATE 5 MG TABLET PO SCH (09:44)
[2019-10-23] MEDS: OLANZapine 10 MG TABLET PO SCH ×2 (09:44→20:30)
[2019-10-23] MEDS: FLUoxetine HCL 20 MG CAPSULE PO SCH (09:44)
[2019-10-23 16:22] VITALS: BP 113/68
[2019-10-23 19:37] VITALS: BP 116/70
[2019-10-23] MEDS: ACETAMINOPHEN 325 MG TABLET PO PRN (19:37)
[2019-10-23] MEDS: TraZODone HCL 50 MG TABLET PO SCH (20:30)
[2019-10-24 06:47] VITALS: BP 115/76
[2019-10-24] MEDS: OLANZapine 10 MG TABLET PO SCH ×2 (08:45→20:37)
[2019-10-24] MEDS: FLUoxetine HCL 20 MG CAPSULE PO SCH (08:45)
[2019-10-24] MEDS: AmLODIPine BESYLATE 5 MG TABLET PO SCH (08:45)
[2019-10-24 08:48] VITALS: BP 120/60
[2019-10-24] MEDS: IBUPROFEN 400 MG TABLET PO PRN ×2 (08:52→19:14)
[2019-10-24 16:14] VITALS: BP_SYST 116; BP_DIAS 116; BP_DIAS 68
[2019-10-24 19:14] VITALS: BP 124/78
[2019-10-24 20:24] VITALS: BP 116/68
[2019-10-24] MEDS: TraZODone HCL 50 MG TABLET PO SCH (20:37)
[2019-10-25 00:42] VITALS: BP 110/64
[2019-10-25 08:44] VITALS: BP 107/65
[2019-10-25] MEDS: FLUoxetine HCL 20 MG CAPSULE PO SCH (09:00)
[2019-10-25] MEDS: OLANZapine 10 MG TABLET PO SCH ×2 (09:00→21:18)
[2019-10-25] MEDS: AmLODIPine BESYLATE 5 MG TABLET PO SCH (09:01)
[2019-10-25] MEDS: IBUPROFEN 400 MG TABLET PO PRN ×2 (09:01→16:52)
[2019-10-25 16:24] VITALS: BP 101/70
[2019-10-25] MEDS: TraZODone HCL 50 MG TABLET PO SCH (21:17)
[2019-10-26 00:37] VITALS: BP 128/69
[2019-10-26 06:45] VITALS: BP 122/70
[2019-10-26] MEDS: IBUPROFEN 400 MG TABLET PO PRN ×2 (06:50→15:52)
[2019-10-26] MEDS: OLANZapine 10 MG TABLET PO SCH ×2 (08:59→22:04)
[2019-10-26] MEDS: FLUoxetine HCL 20 MG CAPSULE PO SCH (08:59)
[2019-10-26] MEDS: AmLODIPine BESYLATE 5 MG TABLET PO SCH (08:59)
[2019-10-26 09:05] VITALS: BP 101/63
[2019-10-26] MEDS: ACETAMINOPHEN 325 MG TABLET PO PRN (10:04)
[2019-10-26 16:14] VITALS: BP 101/67
[2019-10-26] MEDS: TraZODone HCL 50 MG TABLET PO SCH (22:04)
[2019-10-27 01:17] VITALS: BP 124/86
[2019-10-27 06:35] VITALS: BP 122/88
[2019-10-27] MEDS: IBUPROFEN 400 MG TABLET PO PRN ×2 (06:41→16:12)
[2019-10-27 08:31] VITALS: BP 102/62
[2019-10-27] MEDS: FLUoxetine HCL 20 MG CAPSULE PO SCH (08:37)
[2019-10-27] MEDS: OLANZapine 10 MG TABLET PO SCH ×2 (08:37→20:01)
[2019-10-27] MEDS: AmLODIPine BESYLATE 5 MG TABLET PO SCH (08:38)
[2019-10-27 16:12] VITALS: BP 107/73
[2019-10-27] MEDS: TraZODone HCL 50 MG TABLET PO SCH (20:01)
[2019-10-28 00:34] VITALS: BP 133/75
[2019-10-28 08:23] VITALS: BP 103/64
[2019-10-28] MEDS: OLANZapine 10 MG TABLET PO SCH ×2 (08:29→20:23)
[2019-10-28] MEDS: FLUoxetine HCL 20 MG CAPSULE PO SCH (08:29)
[2019-10-28] MEDS: AmLODIPine BESYLATE 5 MG TABLET PO SCH (08:30)
[2019-10-28] MEDS: IBUPROFEN 400 MG TABLET PO PRN ×2 (08:48→18:36)
[2019-10-28] MEDS: ACETAMINOPHEN 325 MG TABLET PO PRN (16:41)
[2019-10-28 18:20] VITALS: BP 118/73
[2019-10-28 18:36] VITALS: BP 125/88
[2019-10-28] MEDS: TraZODone HCL 50 MG TABLET PO SCH (20:22)
[2019-10-29 01:39] VITALS: BP 114/62
[2019-10-29 06:48] VITALS: BP 110/60
[2019-10-29] MEDS: IBUPROFEN 400 MG TABLET PO PRN (06:50)
[2019-10-29 08:22] VITALS: BP 109/67
[2019-10-29] MEDS: FLUoxetine HCL 20 MG CAPSULE PO SCH (09:09)
[2019-10-29] MEDS: OLANZapine 10 MG TABLET PO SCH (09:09)
[2019-10-29] MEDS: AmLODIPine BESYLATE 5 MG TABLET PO SCH (09:09)
[2019-10-29] MEDS ORDERED: TRAZ-252 PO (10:50)
[2019-10-29] MEDS ORDERED: OLAN10TA20 PO (10:50)
[2019-10-29] MEDS ORDERED: FLUO-191 PO (10:50)
== END 2019-10-29 12:35 | disposition home or self-care (01) | DRG 750 ==
LOC: B3A 16:38 → B2S 10-23 09:09
DX: F25.1 Schizoaffective disorder, depressive type (principal); R45.851 Suicidal ideations; Z59.0 Homelessness; I10 Essential (primary) hypertension; E78.5 Hyperlipidemia, unspecified; F15.10 Other stimulant abuse, uncomplicated; D64.9 Anemia, unspecified; F19.10 Other psychoactive substance abuse, uncomplicated; F41.9 Anxiety disorder, unspecified; G47.00 Insomnia, unspecified; Z91.5 Personal history of self-harm; Z81.8 Family history of other mental and behavioral disorders; Z79.899 Other long term (current) drug therapy; Z91.19 Patient's noncompliance with other medical treatment and regimen
CPT/HCPCS: 83036; 84443; 87081

== ENCOUNTER 2019-11-13 15:03 | Inpatient (IN) | payer MEDICAID ==
[~2019-11-13] VITALS: Ht 175.3 cm; Wt 78.2 kg
[~2019-11-13 15:03] MED LIST changes: -MUPI1OIN5 TP
[2019-11-13] MEDS ORDERED: OLAN10TA3 PO (15:56)
[2019-11-13] MEDS ORDERED: TRAZ-252 PO (15:56)
[2019-11-13] MEDS ORDERED: FLUO-191 PO (15:56)
[2019-11-13] MEDS ORDERED: LORazepam 2 MG TABLET PO PRN (16:15)
[2019-11-13] MEDS ORDERED: HALOPERIDOL 5 MG TABLET PO PRN (16:15)
[2019-11-13] MEDS ORDERED: ZOLPIDEM TARTRATE 10 MG TABLET PO PRN (16:15)
[2019-11-13 16:30] VITALS: BP 131/80
[2019-11-13 16:40] VITALS: BP 136/85
[2019-11-14 06:44] VITALS: BP 131/85
[2019-11-14 08:03] VITALS: BP 136/81
[2019-11-14 08:14] LABS: BASOPHILS % (AUTO) 0.5 % (0.0-2.0); EOSINOPHILS % (AUTO) 3.1 % (1.0-6.0); HEMATOCRIT 42.6 % (41-53); HEMOGLOBIN 14.6 g/dL (13.5-17.5); LYMPHOCYTES # (AUTO) 1.7 K/uL (1.0-4.8); LYMPHOCYTES % (AUTO) 22.3 % (22.0-44.0); MEAN CORPUSCULAR HEMOGLOBIN 31.7 pg (26.0-34.0); MEAN CORPUSCULAR HGB CONC 34.3 G/dL (31.0-37.0); MEAN CORPUSCULAR VOLUME 93 fL (80-100); MONOCYTES # (AUTO) 0.4 K/uL (0.1-1.0); MONOCYTES % (AUTO) 4.8 % (2.0-9.0); NEUTROPHILS # (AUTO) 5.4 K/uL (1.8-7.7); NEUTROPHILS % (AUTO) 69.3 % (40.0-70.0); PLATELET COUNT (AUTO) 259 K/uL (150-450); RED BLOOD CELL COUNT(AUTO) 4.61 MIL/uL (4.50-5.90); RED CELL DISTRIBUTION WIDTH 14.6 % (11.5-14.5)
[2019-11-14] MEDS: NICOTINE 21 MG/24 HOUR PATCH TD SCH (08:53)
[2019-11-14] MEDS: AmLODIPine BESYLATE 5 MG TABLET PO SCH (08:53)
[2019-11-14 08:59] LABS: HEMOGLOBIN A1C 5.8 % (3.8-5.6)
[2019-11-14 09:13] LABS: ALANINE AMINOTRANSFERASE 20 U/L (12-78); ALBUMIN 3.3 g/dL (3.4-5.0); ALKALINE PHOSPHATASE 64 U/L (46-116); ANION GAP 6 mmol/L (8-16); ASPARTATE AMINOTRANSFERASE 18 U/L (15-37); BILIRUBIN,TOTAL 0.4 mg/dL (0.1-1.0); CALCIUM, TOTAL 8.9 mg/dL (8.8-10.5); CARBON DIOXIDE 28 mmol/L (22-29); CHLORIDE 107 mmol/L (98-107); CHOL/HDL RATIO 3.1 (4.2-7.3); CHOLESTEROL 176 mg/dL (131-200); CREATININE 1.02 mg/dL (0.60-1.30); FREE T4 (FREE THYROXINE) 0.87 ng/dL (0.76-1.46); GLOMERULAR FILTR. RATE CALC > 60 mL/min (>60); GLUCOSE,RANDOM 93 mg/dL (70-110); HDL CHOLESTEROL 56 mg/dL (40-60); LDL CHOL (CALC.) 99 mg/dL (0-130); POTASSIUM 4.2 mmol/L (3.5-5.1); SODIUM SERUM 141 mmol/L (136-145); THYROID STIMULATING HORMONE 0.68 uIU/mL (0.36-3.74); TOTAL PROTEIN, SERUM 6.2 g/dL (6.4-8.2); TRIGLYCERIDES 105 mg/dL (15-150); UREA NITROGEN, BLOOD 12 mg/dL (7-18)
[2019-11-14] MEDS: OLANZapine 10 MG TABLET PO SCH ×2 (12:20→20:07)
[2019-11-14] MEDS: FLUoxetine HCL 20 MG CAPSULE PO SCH (12:20)
[2019-11-14 16:12] VITALS: BP 106/60
[2019-11-14] MEDS: TraZODone HCL 50 MG TABLET PO SCH (20:07)
[2019-11-15 05:28] VITALS: BP 125/65
[2019-11-15] MEDS: IBUPROFEN 400 MG TABLET PO PRN ×2 (07:05→18:02)
[2019-11-15 08:35] VITALS: BP 125/82
[2019-11-15] MEDS: FLUoxetine HCL 20 MG CAPSULE PO SCH (09:48)
[2019-11-15] MEDS: NICOTINE 21 MG/24 HOUR PATCH TD SCH (09:48)
[2019-11-15] MEDS: OLANZapine 10 MG TABLET PO SCH ×2 (09:49→20:36)
[2019-11-15] MEDS: AmLODIPine BESYLATE 5 MG TABLET PO SCH (09:49)
[2019-11-15 17:16] VITALS: BP 108/68
[2019-11-15] MEDS: TraZODone HCL 50 MG TABLET PO SCH (20:36)
[2019-11-16 01:29] VITALS: BP 102/62
[2019-11-16 08:05] VITALS: BP 118/71
[2019-11-16] MEDS: OLANZapine 10 MG TABLET PO SCH ×2 (08:18→20:33)
[2019-11-16] MEDS: AmLODIPine BESYLATE 5 MG TABLET PO SCH (08:18)
[2019-11-16] MEDS: FLUoxetine HCL 20 MG CAPSULE PO SCH (08:18)
[2019-11-16] MEDS: NICOTINE 21 MG/24 HOUR PATCH TD SCH (08:19)
[2019-11-16] MEDS: IBUPROFEN 400 MG TABLET PO PRN ×2 (08:38→16:38)
[2019-11-16 16:07] VITALS: BP 110/60
[2019-11-16] MEDS: TraZODone HCL 50 MG TABLET PO SCH (20:33)
[2019-11-17 00:06] VITALS: BP 104/66
[2019-11-17 06:35] VITALS: BP 131/96
[2019-11-17] MEDS: IBUPROFEN 400 MG TABLET PO PRN ×2 (06:40→18:54)
[2019-11-17 08:25] VITALS: BP 122/62
[2019-11-17] MEDS: NICOTINE 21 MG/24 HOUR PATCH TD SCH (08:26)
[2019-11-17] MEDS: AmLODIPine BESYLATE 5 MG TABLET PO SCH (08:26)
[2019-11-17] MEDS: FLUoxetine HCL 20 MG CAPSULE PO SCH (08:26)
[2019-11-17] MEDS: OLANZapine 10 MG TABLET PO SCH (08:26)
[2019-11-17] MEDS ORDERED: TRAZ-252 PO (15:31)
[2019-11-17] MEDS ORDERED: OLAN10TA20 PO (15:31)
[2019-11-17] MEDS ORDERED: FLUO-191 PO (15:31)
[2019-11-17 16:08] VITALS: BP 101/68
[2019-11-17] MEDS ORDERED: AMLO5TAB9 PO (16:11)
[2019-11-17 18:54] VITALS: BP 112/72
== END 2019-11-17 21:50 | disposition home or self-care (01) | DRG 750 ==
LOC: B2S 16:14
DX: F25.1 Schizoaffective disorder, depressive type (principal); F15.20 Other stimulant dependence, uncomplicated; R45.851 Suicidal ideations; D64.9 Anemia, unspecified; E78.5 Hyperlipidemia, unspecified; I10 Essential (primary) hypertension; Z59.0 Homelessness; Z79.899 Other long term (current) drug therapy; Z91.5 Personal history of self-harm
CPT/HCPCS: 83036; 84439; 84443; 87081

== ENCOUNTER 2019-12-17 16:56 | Inpatient (IN) | payer MEDICAID ==
[~2019-12-17] VITALS: Ht 175.3 cm; Wt 73.5 kg
[~2019-12-17 16:56] MED LIST changes: +OLAN10TA3 PO
[2019-12-17] MEDS ORDERED: ZOLPIDEM TARTRATE 10 MG TABLET PO PRN (19:00)
[2019-12-17] MEDS ORDERED: LORazepam 2 MG TABLET PO PRN (19:00)
[2019-12-17] MEDS ORDERED: HALOPERIDOL 5 MG TABLET PO PRN (19:00)
[2019-12-17] MEDS ORDERED: AmLODIPine BESYLATE 5 MG TABLET PO SCH (19:30)
[2019-12-17 19:33] VITALS: BP 138/100
[2019-12-17] MEDS: TraZODone HCL 50 MG TABLET PO SCH (20:07)
[2019-12-17] MEDS: OLANZapine 10 MG TABLET PO SCH (20:07)
[2019-12-17 20:16] VITALS: BP 139/96
[2019-12-17 21:24] VITALS: BP 103/67
[2019-12-18 05:48] VITALS: BP 101/58
[2019-12-18 08:02] LABS: BASOPHILS % (AUTO) 0.3 % (0.0-2.0); EOSINOPHILS % (AUTO) 1.8 % (1.0-6.0); HEMOGLOBIN 13.7 g/dL (13.5-17.5); LYMPHOCYTES # (AUTO) 1.7 K/uL (1.0-4.8); LYMPHOCYTES % (AUTO) 19.3 % (22.0-44.0); MEAN CORPUSCULAR HEMOGLOBIN 31.7 pg (26.0-34.0); MEAN CORPUSCULAR HGB CONC 34.3 G/dL (31.0-37.0); MEAN CORPUSCULAR VOLUME 93 fL (80-100); MONOCYTES # (AUTO) 0.6 K/uL (0.1-1.0); MONOCYTES % (AUTO) 6.9 % (2.0-9.0); NEUTROPHILS # (AUTO) 6.2 K/uL (1.8-7.7); NEUTROPHILS % (AUTO) 71.7 % (40.0-70.0); PLATELET COUNT (AUTO) 281 K/uL (150-450); RED BLOOD CELL COUNT(AUTO) 4.33 MIL/uL (4.50-5.90); RED CELL DISTRIBUTION WIDTH 13.9 % (11.5-14.5)
[2019-12-18 08:14] LABS: HEMOGLOBIN A1C 5.4 % (3.8-5.6)
[2019-12-18 08:16] LABS: ALANINE AMINOTRANSFERASE 15 U/L (12-78); ALKALINE PHOSPHATASE 81 U/L (46-116); ANION GAP 7 mmol/L (8-16); ASPARTATE AMINOTRANSFERASE 16 U/L (15-37); BILIRUBIN,TOTAL 0.7 mg/dL (0.1-1.0); CALCIUM, TOTAL 8.9 mg/dL (8.8-10.5); CARBON DIOXIDE 29 mmol/L (22-29); CHLORIDE 105 mmol/L (98-107); CHOLESTEROL 157 mg/dL (131-200); CREATININE 1.02 mg/dL (0.60-1.30); FREE T4 (FREE THYROXINE) 0.97 ng/dL (0.76-1.46); GLOMERULAR FILTR. RATE CALC > 60 mL/min (>60); GLUCOSE,RANDOM 87 mg/dL (70-110); HDL CHOLESTEROL 53 mg/dL (40-60); LDL CHOL (CALC.) 90 mg/dL (0-130); POTASSIUM 3.9 mmol/L (3.5-5.1); SODIUM SERUM 141 mmol/L (136-145); TRIGLYCERIDES 71 mg/dL (15-150); UREA NITROGEN, BLOOD 12 mg/dL (7-18)
[2019-12-18] MEDS ORDERED: NICOTINE 14 MG/24 HOUR PATCH TD PRN (08:30)
[2019-12-18] MEDS ORDERED: ALBUTEROL SULFATE HFA 90 MCG/PUFF 8 GM INHALER IH PRN (08:30)
[2019-12-18] MEDS ORDERED: IBUPROFEN 400 MG TABLET PO PRN (08:30)
[2019-12-18] MEDS ORDERED: PETROLATUM,WHITE 28 GM JELLY TP PRN (08:30)
[2019-12-18] MEDS ORDERED: MAG HYDROX/AL HYDROX/SIMETH ES 30 ML SUSPENSION UDCUP PO PRN (08:30)
[2019-12-18] MEDS ORDERED: MAGNESIUM HYDROXIDE SUSPENSION 30 ML UDCUP PO PRN (08:30)
[2019-12-18] MEDS ORDERED: ACETAMINOPHEN 325 MG TABLET PO PRN (08:30)
[2019-12-18] MEDS ORDERED: DOCUSATE SODIUM 100 MG CAPSULE PO PRN (08:30)
[2019-12-18] MEDS ORDERED: ONDANSETRON HCL 4 MG TABLET PO PRN (08:30)
[2019-12-18] MEDS ORDERED: LOPERAMIDE HCL 2 MG CAPSULE PO PRN (08:30)
[2019-12-18] MEDS ORDERED: CloNIDine HCL 0.1 MG TABLET PO PRN (08:30)
[2019-12-18] MEDS ORDERED: GuaiFENesin/D-METHORPHAN [SUGAR-FREE] 200-20MG/10 ML SYRUP UDCUP PO PRN (08:30)
[2019-12-18 09:00] VITALS: BP 117/67
[2019-12-18] MEDS: AmLODIPine BESYLATE 5 MG TABLET PO SCH (09:40)
[2019-12-18] MEDS: OLANZapine 10 MG TABLET PO SCH ×2 (09:40→20:29)
[2019-12-18] MEDS: FLUoxetine HCL 20 MG CAPSULE PO SCH (09:40)
[2019-12-18 16:07] VITALS: BP 100/60
[2019-12-18] MEDS: TraZODone HCL 50 MG TABLET PO SCH (20:29)
[2019-12-19 01:08] VITALS: BP 84/64
[2019-12-19] MEDS: AmLODIPine BESYLATE 5 MG TABLET PO SCH (08:24)
[2019-12-19] MEDS: FLUoxetine HCL 20 MG CAPSULE PO SCH (08:24)
[2019-12-19] MEDS: OLANZapine 10 MG TABLET PO SCH ×2 (08:24→20:04)
[2019-12-19 08:43] VITALS: BP 101/60
[2019-12-19 16:43] VITALS: BP 105/64
[2019-12-19] MEDS: TraZODone HCL 50 MG TABLET PO SCH (20:04)
[2019-12-20 06:50] VITALS: BP 115/69
[2019-12-20] MEDS: AmLODIPine BESYLATE 5 MG TABLET PO SCH (08:03)
[2019-12-20] MEDS: OLANZapine 10 MG TABLET PO SCH ×2 (08:03→20:14)
[2019-12-20] MEDS: FLUoxetine HCL 20 MG CAPSULE PO SCH (08:03)
[2019-12-20 08:25] VITALS: BP 119/65
[2019-12-20 16:07] VITALS: BP 117/63
[2019-12-20] MEDS: TraZODone HCL 50 MG TABLET PO SCH (20:14)
[2019-12-21 00:27] VITALS: BP 104/60
[2019-12-21] MEDS: AmLODIPine BESYLATE 5 MG TABLET PO SCH (08:28)
[2019-12-21] MEDS: OLANZapine 10 MG TABLET PO SCH ×2 (08:28→20:30)
[2019-12-21] MEDS: FLUoxetine HCL 20 MG CAPSULE PO SCH (08:28)
[2019-12-21 09:12] VITALS: BP 119/79
[2019-12-21 16:06] VITALS: BP 106/73
[2019-12-21] MEDS: TraZODone HCL 50 MG TABLET PO SCH (20:30)
[2019-12-22] VITALS: BP 115/67
[2019-12-22] MEDS: OLANZapine 10 MG TABLET PO SCH ×2 (08:32→20:03)
[2019-12-22] MEDS: AmLODIPine BESYLATE 5 MG TABLET PO SCH (08:32)
[2019-12-22] MEDS: FLUoxetine HCL 20 MG CAPSULE PO SCH (08:32)
[2019-12-22 09:24] VITALS: BP 113/78
[2019-12-22 15:26] VITALS: BP 116/72
[2019-12-22 16:02] VITALS: BP 112/67
[2019-12-22] MEDS: TraZODone HCL 50 MG TABLET PO SCH (20:03)
[2019-12-23 06:09] VITALS: BP 111/65
[2019-12-23] MEDS: OLANZapine 10 MG TABLET PO SCH (08:31)
[2019-12-23] MEDS: FLUoxetine HCL 20 MG CAPSULE PO SCH (08:31)
[2019-12-23] MEDS: AmLODIPine BESYLATE 5 MG TABLET PO SCH (08:32)
[2019-12-23 08:51] VITALS: BP 116/54
[2019-12-23] MEDS ORDERED: OLAN10TA20 PO (09:25)
[2019-12-23] MEDS ORDERED: FLUO-191 PO (09:25)
[2019-12-23] MEDS ORDERED: TRAZ-252 PO (09:25)
== END 2019-12-23 13:55 | disposition home or self-care (01) | DRG 750 ==
LOC: B2S 19:19
DX: F25.1 Schizoaffective disorder, depressive type (principal); R45.851 Suicidal ideations; F15.20 Other stimulant dependence, uncomplicated; E78.5 Hyperlipidemia, unspecified; I10 Essential (primary) hypertension; D64.9 Anemia, unspecified; F10.10 Alcohol abuse, uncomplicated; Z79.899 Other long term (current) drug therapy; Z59.0 Homelessness
CPT/HCPCS: 83036; 84436; 84439; 84443; 87081

== ENCOUNTER 2019-12-26 08:52 | Inpatient (IN) | payer MEDICAID, OTHER ==
[~2019-12-26] VITALS: Ht 172.7 cm; Wt 71.4 kg
[~2019-12-26 08:52] MED LIST changes: -OLAN10TA3 PO
[2019-12-26 09:24] LABS: HEMATOCRIT 43.5 % (41-53); HEMOGLOBIN 14.9 g/dL (13.5-17.5); MEAN CORPUSCULAR VOLUME 92 fL (80-100); RED BLOOD CELL COUNT(AUTO) 4.71 MIL/uL (4.50-5.90)
[2019-12-26 09:25] LABS: BASOPHILS % (AUTO) 0.4 % (0.0-2.0); EOSINOPHILS % (AUTO) 1.3 % (1.0-6.0); LYMPHOCYTES # (AUTO) 1.8 K/uL (1.0-4.8); LYMPHOCYTES % (AUTO) 19.2 % (22.0-44.0); MEAN CORPUSCULAR HEMOGLOBIN 31.6 pg (26.0-34.0); MEAN CORPUSCULAR HGB CONC 34.2 G/dL (31.0-37.0); MONOCYTES # (AUTO) 0.5 K/uL (0.1-1.0); MONOCYTES % (AUTO) 5.9 % (2.0-9.0); NEUTROPHILS # (AUTO) 6.8 K/uL (1.8-7.7); NEUTROPHILS % (AUTO) 73.2 % (40.0-70.0); PLATELET COUNT (AUTO) 272 K/uL (150-450); RED CELL DISTRIBUTION WIDTH 13.5 % (11.5-14.5)
[2019-12-26 09:33] LABS: ANION GAP 15 mmol/L (8-16); CALCIUM, TOTAL 9.1 mg/dL (8.8-10.5); CARBON DIOXIDE 22 mmol/L (22-29); CHLORIDE 105 mmol/L (98-107); CREATININE 1.27 mg/dL (0.60-1.30); GLOMERULAR FILTR. RATE CALC 60 mL/min (>60); GLUCOSE,RANDOM 97 mg/dL (70-110); POTASSIUM 3.8 mmol/L (3.5-5.1); SODIUM SERUM 142 mmol/L (136-145); UREA NITROGEN, BLOOD 19 mg/dL (7-18)
[2019-12-26 09:40] LABS: ALANINE AMINOTRANSFERASE 20 U/L (12-78); ALBUMIN 3.9 g/dL (3.4-5.0); ALKALINE PHOSPHATASE 75 U/L (46-116); ASPARTATE AMINOTRANSFERASE 23 U/L (15-37)
[2019-12-26] MEDS ORDERED: ZOLPIDEM TARTRATE 10 MG TABLET PO PRN (12:00)
[2019-12-26] MEDS ORDERED: LORazepam 2 MG TABLET PO PRN (12:00)
[2019-12-26] MEDS ORDERED: HALOPERIDOL 5 MG TABLET PO PRN (12:00)
[2019-12-26] MEDS ORDERED: BACITRACIN 0.9 GM PACKET OINTMENT TP ONE (12:15)
[2019-12-26] MEDS ORDERED: LOPERAMIDE HCL 2 MG CAPSULE PO PRN (19:45)
[2019-12-26] MEDS ORDERED: DOCUSATE SODIUM 100 MG CAPSULE PO PRN (19:45)
[2019-12-26] MEDS ORDERED: ALBUTEROL SULFATE HFA 90 MCG/PUFF 8 GM INHALER IH PRN (19:45)
[2019-12-26] MEDS ORDERED: NICOTINE 14 MG/24 HOUR PATCH TD PRN (19:45)
[2019-12-26] MEDS ORDERED: MAGNESIUM HYDROXIDE SUSPENSION 30 ML UDCUP PO PRN (19:45)
[2019-12-26] MEDS ORDERED: MAG HYDROX/AL HYDROX/SIMETH ES 30 ML SUSPENSION UDCUP PO PRN (19:45)
[2019-12-26] MEDS ORDERED: PETROLATUM,WHITE 28 GM JELLY TP PRN (19:45)
[2019-12-26] MEDS ORDERED: GuaiFENesin/D-METHORPHAN [SUGAR-FREE] 200-20MG/10 ML SYRUP UDCUP PO PRN (19:45)
[2019-12-26] MEDS ORDERED: ONDANSETRON HCL 4 MG TABLET PO PRN (19:45)
[2019-12-26] MEDS ORDERED: CloNIDine HCL 0.1 MG TABLET PO PRN (19:45)
[2019-12-26] MEDS ORDERED: ACETAMINOPHEN 325 MG TABLET PO PRN (19:45)
[2019-12-26 20:48] LABS: AMPHET/METH SCREEN,URINE POSITIVE (NEGATIVE); BARBITURATE SCREEN, URINE NEGATIVE (NEGATIVE); BENZODIAZEPINES SCREEN,URINE NEGATIVE (NEGATIVE); CANNABINOID SCREEN,URINE NEGATIVE (NEGATIVE); COCAINE SCREEN,URINE NEGATIVE (NEGATIVE); METHADONE SCREEN, URINE NEGATIVE (NEGATIVE); OPIATE SCREEN,URINE NEGATIVE (NEGATIVE)
[2019-12-26 20:53] LABS: PHENCYCLIDINE SCREEN,URINE NEGATIVE (NEGATIVE)
[2019-12-26] MEDS: TraZODone HCL 50 MG TABLET PO SCH (21:05)
[2019-12-26] MEDS: OLANZapine 10 MG TABLET PO SCH (21:05)
[2019-12-26] MEDS ORDERED: -PHARMACY VACCINE NOTE- MISC ONE (21:30)
[2019-12-26 21:34] VITALS: BP 106/70
[2019-12-27 00:48] VITALS: BP 109/62
[2019-12-27 08:22] VITALS: BP 106/93
[2019-12-27 08:53] LABS: CHOL/HDL RATIO 2.8 (4.2-7.3); FREE T4 (FREE THYROXINE) 1.24 ng/dL (0.76-1.46); THYROID STIMULATING HORMONE 0.44 uIU/mL (0.36-3.74)
[2019-12-27] MEDS ORDERED: FLUoxetine HCL 20 MG CAPSULE PO SCH (09:00)
[2019-12-27] MEDS ORDERED: OLANZapine 10 MG TABLET PO SCH (09:00)
[2019-12-27] MEDS: AmLODIPine BESYLATE 5 MG TABLET PO SCH (09:09)
[2019-12-27] MEDS: OLANZapine 10 MG TABLET PO SCH ×2 (09:09→20:39)
[2019-12-27] MEDS: FLUoxetine HCL 20 MG CAPSULE PO SCH (09:09)
[2019-12-27 16:10] VITALS: BP 106/68
[2019-12-27] MEDS: TraZODone HCL 50 MG TABLET PO SCH (20:39)
[2019-12-27] MEDS ORDERED: TraZODone HCL 50 MG TABLET PO SCH (21:00)
[2019-12-28 00:52] VITALS: BP 110/70
[2019-12-28 05:51] VITALS: BP 115/72
[2019-12-28] MEDS: IBUPROFEN 400 MG TABLET PO PRN (05:51)
[2019-12-28 08:11] VITALS: BP 100/62
[2019-12-28] MEDS: OLANZapine 10 MG TABLET PO SCH ×2 (09:36→20:28)
[2019-12-28] MEDS: AmLODIPine BESYLATE 5 MG TABLET PO SCH (09:36)
[2019-12-28] MEDS: FLUoxetine HCL 20 MG CAPSULE PO SCH (09:37)
[2019-12-28 16:32] VITALS: BP 106/58
[2019-12-28] MEDS: TraZODone HCL 50 MG TABLET PO SCH (20:28)
[2019-12-29 01:29] VITALS: BP 112/79
[2019-12-29] MEDS: OLANZapine 10 MG TABLET PO SCH ×2 (08:37→20:32)
[2019-12-29] MEDS: AmLODIPine BESYLATE 5 MG TABLET PO SCH (08:37)
[2019-12-29] MEDS: FLUoxetine HCL 20 MG CAPSULE PO SCH (08:37)
[2019-12-29 09:30] VITALS: BP 100/69
[2019-12-29 16:10] VITALS: BP 108/76
[2019-12-29] MEDS: TraZODone HCL 50 MG TABLET PO SCH (20:32)
[2019-12-30 00:32] VITALS: BP 127/78
[2019-12-30 08:06] VITALS: BP 107/62
[2019-12-30] MEDS: FLUoxetine HCL 20 MG CAPSULE PO SCH (08:49)
[2019-12-30] MEDS: OLANZapine 10 MG TABLET PO SCH ×2 (08:49→20:28)
[2019-12-30] MEDS: AmLODIPine BESYLATE 5 MG TABLET PO SCH (09:00)
[2019-12-30] MEDS: IBUPROFEN 400 MG TABLET PO PRN (09:09)
[2019-12-30 16:12] VITALS: BP 93/59
[2019-12-30] MEDS: TraZODone HCL 50 MG TABLET PO SCH (20:28)
[2019-12-31 00:10] VITALS: BP 100/61
[2019-12-31] MEDS: FLUoxetine HCL 20 MG CAPSULE PO SCH (08:19)
[2019-12-31] MEDS: AmLODIPine BESYLATE 5 MG TABLET PO SCH (08:19)
[2019-12-31] MEDS: OLANZapine 10 MG TABLET PO SCH ×2 (08:19→20:09)
[2019-12-31 08:38] VITALS: BP 100/69
[2019-12-31] MEDS: IBUPROFEN 400 MG TABLET PO PRN (16:40)
[2019-12-31 17:49] VITALS: BP 107/56
[2019-12-31] MEDS: TraZODone HCL 50 MG TABLET PO SCH (20:09)
[2020-01-01 03:29] VITALS: BP 122/79
[2020-01-01] MEDS: IBUPROFEN 400 MG TABLET PO PRN ×2 (05:42→16:48)
[2020-01-01 08:18] VITALS: BP 112/68
[2020-01-01] MEDS: FLUoxetine HCL 20 MG CAPSULE PO SCH (08:25)
[2020-01-01] MEDS: OLANZapine 10 MG TABLET PO SCH ×2 (08:25→20:36)
[2020-01-01] MEDS: AmLODIPine BESYLATE 5 MG TABLET PO SCH (08:25)
[2020-01-01] MEDS ORDERED: MULTIVITAMINS WITH MINERALS, THERAPEUTIC TABLET PO ONE (09:00)
[2020-01-01] MEDS: MULTIVITAMINS WITH MINERALS, THERAPEUTIC TABLET PO SCH (12:32)
[2020-01-01 16:48] VITALS: BP 129/67
[2020-01-01] MEDS: TraZODone HCL 50 MG TABLET PO SCH (20:36)
[2020-01-02 08:06] VITALS: BP 102/61
[2020-01-02] MEDS: OLANZapine 10 MG TABLET PO SCH ×2 (08:23→20:16)
[2020-01-02] MEDS: MULTIVITAMINS WITH MINERALS, THERAPEUTIC TABLET PO SCH (08:23)
[2020-01-02] MEDS: FLUoxetine HCL 20 MG CAPSULE PO SCH (08:23)
[2020-01-02] MEDS: AmLODIPine BESYLATE 5 MG TABLET PO SCH (08:32)
[2020-01-02] MEDS: IBUPROFEN 400 MG TABLET PO PRN ×2 (08:42→16:52)
[2020-01-02] MEDS ORDERED: MULTIVITAMINS WITH MINERALS, THERAPEUTIC TABLET PO SCH (09:00)
[2020-01-02 16:11] VITALS: BP_SYST 103; BP_SYST 106; BP_DIAS 54; BP_DIAS 68
[2020-01-02] MEDS: TraZODone HCL 50 MG TABLET PO SCH (20:16)
[2020-01-03] MEDS ORDERED: TRAZ-252 PO (00:52)
[2020-01-03] MEDS ORDERED: OLAN10TA3 PO (00:52)
[2020-01-03] MEDS ORDERED: FLUO-191 PO (00:52)
[2020-01-03 05:20] VITALS: BP 103/78
[2020-01-03] MEDS: FLUoxetine HCL 20 MG CAPSULE PO SCH (08:12)
[2020-01-03] MEDS: AmLODIPine BESYLATE 5 MG TABLET PO SCH (08:13)
[2020-01-03] MEDS: OLANZapine 10 MG TABLET PO SCH (08:13)
[2020-01-03] MEDS: MULTIVITAMINS WITH MINERALS, THERAPEUTIC TABLET PO SCH (08:14)
[2020-01-03] MEDS ORDERED: OLANZapine 10 MG TABLET PO SCH (09:00)
[2020-01-03] MEDS ORDERED: FLUoxetine HCL 20 MG CAPSULE PO SCH (09:00)
[2020-01-03] MEDS ORDERED: TraZODone HCL 50 MG TABLET PO SCH (21:00)
== END 2020-01-03 08:38 | disposition home or self-care (01) | DRG 750 ==
LOC: EMS 09:00 → B2X 16:41 → B2S 12-29 22:32
PROVIDERS: ADMIT Psychiatry & Neurology Child & Adolescent Psychiatry
DX: F25.1 Schizoaffective disorder, depressive type (principal); R45.851 Suicidal ideations; F15.20 Other stimulant dependence, uncomplicated; Z59.0 Homelessness; I10 Essential (primary) hypertension; K59.00 Constipation, unspecified; Z79.899 Other long term (current) drug therapy; F17.200 Nicotine dependence, unspecified, uncomplicated; F10.10 Alcohol abuse, uncomplicated; D64.9 Anemia, unspecified; E78.00 Pure hypercholesterolemia, unspecified; E78.5 Hyperlipidemia, unspecified; Z82.49 Family history of ischemic heart disease and other diseases of the circulatory system; Z91.5 Personal history of self-harm
CPT/HCPCS: 84439; 84443; 87081; G0480

== ENCOUNTER 2020-01-23 17:55 | Inpatient (IN) | payer MEDICAID ==
[~2020-01-23] VITALS: Ht 172.7 cm; Wt 70.5 kg
[~2020-01-23 17:55] MED LIST changes: -OLAN10TA20 PO; +OLAN10TA3 PO
[2020-01-23] MEDS ORDERED: HALOPERIDOL 5 MG TABLET PO PRN (18:15)
[2020-01-23] MEDS ORDERED: ZOLPIDEM TARTRATE 10 MG TABLET PO PRN (18:15)
[2020-01-23] MEDS ORDERED: LORazepam 2 MG TABLET PO PRN (18:15)
[2020-01-23 18:21] VITALS: BP 142/65
[2020-01-23 19:52] VITALS: BP 122/62
[2020-01-24 00:10] VITALS: BP 121/71
[2020-01-24 08:06] VITALS: BP 102/65
[2020-01-24 08:14] LABS: BASOPHILS % (AUTO) 0.3 % (0.0-2.0); EOSINOPHILS % (AUTO) 4.6 % (1.0-6.0); HEMATOCRIT 43.5 % (41-53); HEMOGLOBIN 14.6 g/dL (13.5-17.5); LYMPHOCYTES # (AUTO) 2.1 K/uL (1.0-4.8); LYMPHOCYTES % (AUTO) 33.6 % (22.0-44.0); MEAN CORPUSCULAR HEMOGLOBIN 30.9 pg (26.0-34.0); MEAN CORPUSCULAR HGB CONC 33.5 G/dL (31.0-37.0); MEAN CORPUSCULAR VOLUME 93 fL (80-100); MONOCYTES # (AUTO) 0.4 K/uL (0.1-1.0); MONOCYTES % (AUTO) 6.7 % (2.0-9.0); NEUTROPHILS # (AUTO) 3.4 K/uL (1.8-7.7); NEUTROPHILS % (AUTO) 54.8 % (40.0-70.0); PLATELET COUNT (AUTO) 231 K/uL (150-450); RED BLOOD CELL COUNT(AUTO) 4.71 MIL/uL (4.50-5.90); RED CELL DISTRIBUTION WIDTH 13.5 % (11.5-14.5)
[2020-01-24 08:31] LABS: HEMOGLOBIN A1C 5.5 % (3.8-5.6)
[2020-01-24 08:32] LABS: APPEARANCE,URINE CLEAR (CLEAR); GLUCOSE, URINE (UA) NEGATIVE (NEGATIVE); KETONES,URINE NEGATIVE (NEGATIVE); LEUKOCYTE ESTERASE ,URINE NEGATIVE (NEGATIVE); NITRATE,URINE NEGATIVE (NEGATIVE); OCCULT BLOOD,URINE NEGATIVE (NEGATIVE); PROTEIN,URINE NEGATIVE (NEGATIVE)
[2020-01-24] MEDS: AmLODIPine BESYLATE 5 MG TABLET PO SCH (08:37)
[2020-01-24 08:53] LABS: AMPHET/METH SCREEN,URINE POSITIVE (NEGATIVE); BARBITURATE SCREEN, URINE NEGATIVE (NEGATIVE); BENZODIAZEPINES SCREEN,URINE NEGATIVE (NEGATIVE); CANNABINOID SCREEN,URINE NEGATIVE (NEGATIVE); COCAINE SCREEN,URINE NEGATIVE (NEGATIVE); METHADONE SCREEN, URINE NEGATIVE (NEGATIVE); OPIATE SCREEN,URINE NEGATIVE (NEGATIVE); PHENCYCLIDINE SCREEN,URINE NEGATIVE (NEGATIVE)
[2020-01-24 09:12] LABS: ALANINE AMINOTRANSFERASE 19 U/L (12-78); ALBUMIN 3.2 g/dL (3.4-5.0); ALKALINE PHOSPHATASE 72 U/L (46-116); ANION GAP 10 mmol/L (8-16); ASPARTATE AMINOTRANSFERASE 16 U/L (15-37); BILIRUBIN,TOTAL 0.4 mg/dL (0.1-1.0); CALCIUM, TOTAL 8.6 mg/dL (8.8-10.5); CARBON DIOXIDE 26 mmol/L (22-29); CHLORIDE 107 mmol/L (98-107); CHOL/HDL RATIO 2.5 (4.2-7.3); CHOLESTEROL 137 mg/dL (131-200); CREATININE 0.88 mg/dL (0.60-1.30); FREE T4 (FREE THYROXINE) 0.89 ng/dL (0.76-1.46); GLOMERULAR FILTR. RATE CALC > 60 mL/min (>60); GLUCOSE,RANDOM 97 mg/dL (70-110); HDL CHOLESTEROL 54 mg/dL (40-60); LDL CHOL (CALC.) 67 mg/dL (0-130); POTASSIUM 4.5 mmol/L (3.5-5.1); SODIUM SERUM 143 mmol/L (136-145); THYROID STIMULATING HORMONE 0.76 uIU/mL (0.36-3.74); TOTAL PROTEIN, SERUM 6.3 g/dL (6.4-8.2); TRIGLYCERIDES 79 mg/dL (15-150); UREA NITROGEN, BLOOD 12 mg/dL (7-18)
[2020-01-24 09:24] LABS: BILIRUBIN,URINE PRELIM. POSITIVE (NEGATIVE)
[2020-01-24] MEDS: FLUoxetine HCL 20 MG CAPSULE PO SCH (12:36)
[2020-01-24] MEDS: OLANZapine 10 MG TABLET PO SCH ×2 (12:41→21:02)
[2020-01-24] MEDS ORDERED: ACETAMINOPHEN 325 MG TABLET PO PRN (13:15)
[2020-01-24] MEDS ORDERED: CloNIDine HCL 0.1 MG TABLET PO PRN (13:15)
[2020-01-24] MEDS ORDERED: MAG HYDROX/AL HYDROX/SIMETH ES 30 ML SUSPENSION UDCUP PO PRN (13:15)
[2020-01-24] MEDS ORDERED: ALBUTEROL SULFATE HFA 90 MCG/PUFF 8 GM INHALER IH PRN (13:15)
[2020-01-24] MEDS ORDERED: LOPERAMIDE HCL 2 MG CAPSULE PO PRN (13:15)
[2020-01-24] MEDS ORDERED: ONDANSETRON HCL 4 MG TABLET PO PRN (13:15)
[2020-01-24] MEDS ORDERED: GuaiFENesin/D-METHORPHAN [SUGAR-FREE] 200-20MG/10 ML SYRUP UDCUP PO PRN (13:15)
[2020-01-24] MEDS ORDERED: NICOTINE 14 MG/24 HOUR PATCH TD PRN (13:15)
[2020-01-24] MEDS ORDERED: DOCUSATE SODIUM 100 MG CAPSULE PO PRN (13:15)
[2020-01-24] MEDS ORDERED: MAGNESIUM HYDROXIDE SUSPENSION 30 ML UDCUP PO PRN (13:15)
[2020-01-24] MEDS ORDERED: PETROLATUM,WHITE 28 GM JELLY TP PRN (13:15)
[2020-01-24 16:12] VITALS: BP 109/72
[2020-01-24] MEDS: TraZODone HCL 50 MG TABLET PO SCH (21:02)
[2020-01-25 00:14] VITALS: BP 104/67
[2020-01-25 08:07] VITALS: BP 127/79
[2020-01-25] MEDS: FLUoxetine HCL 20 MG CAPSULE PO SCH (08:48)
[2020-01-25] MEDS: OLANZapine 10 MG TABLET PO SCH ×2 (08:48→20:38)
[2020-01-25] MEDS: AmLODIPine BESYLATE 5 MG TABLET PO SCH (08:49)
[2020-01-25 16:32] VITALS: BP 109/71
[2020-01-25] MEDS: TraZODone HCL 50 MG TABLET PO SCH (20:38)
[2020-01-26 06:44] VITALS: BP 124/78
[2020-01-26] MEDS: AmLODIPine BESYLATE 5 MG TABLET PO SCH (08:50)
[2020-01-26] MEDS: OLANZapine 10 MG TABLET PO SCH ×2 (08:50→20:36)
[2020-01-26] MEDS: FLUoxetine HCL 20 MG CAPSULE PO SCH (08:50)
[2020-01-26 09:00] VITALS: BP 109/62
[2020-01-26 14:29] VITALS: BP 103/65
[2020-01-26 16:08] VITALS: BP 108/71
[2020-01-26] MEDS: TraZODone HCL 50 MG TABLET PO SCH (20:36)
[2020-01-27 00:53] VITALS: BP 102/62
[2020-01-27 08:01] VITALS: BP 109/71
[2020-01-27] MEDS: AmLODIPine BESYLATE 5 MG TABLET PO SCH (08:36)
[2020-01-27] MEDS: FLUoxetine HCL 20 MG CAPSULE PO SCH (08:36)
[2020-01-27] MEDS: OLANZapine 10 MG TABLET PO SCH ×2 (08:36→20:20)
[2020-01-27 16:00] VITALS: BP 102/72
[2020-01-27] MEDS: TraZODone HCL 50 MG TABLET PO SCH (20:21)
[2020-01-28 00:56] VITALS: BP 106/63
[2020-01-28] MEDS: AmLODIPine BESYLATE 5 MG TABLET PO SCH (08:45)
[2020-01-28] MEDS: OLANZapine 10 MG TABLET PO SCH ×2 (08:46→20:07)
[2020-01-28] MEDS: FLUoxetine HCL 20 MG CAPSULE PO SCH (08:46)
[2020-01-28 08:50] VITALS: BP 105/71
[2020-01-28 16:13] VITALS: BP 109/68
[2020-01-28] MEDS: IBUPROFEN 400 MG TABLET PO PRN (16:36)
[2020-01-28] MEDS: TraZODone HCL 50 MG TABLET PO SCH (20:08)
[2020-01-29] VITALS: BP 116/70
[2020-01-29] MEDS: FLUoxetine HCL 20 MG CAPSULE PO SCH (08:32)
[2020-01-29] MEDS: OLANZapine 10 MG TABLET PO SCH ×2 (08:32→20:09)
[2020-01-29] MEDS: AmLODIPine BESYLATE 5 MG TABLET PO SCH (08:33)
[2020-01-29 09:29] VITALS: BP 105/69
[2020-01-29 16:01] VITALS: BP 130/65
[2020-01-29] MEDS: TraZODone HCL 50 MG TABLET PO SCH (20:09)
[2020-01-30 06:23] VITALS: BP 104/65
[2020-01-30] MEDS: FLUoxetine HCL 20 MG CAPSULE PO SCH (08:23)
[2020-01-30] MEDS: OLANZapine 10 MG TABLET PO SCH ×2 (08:23→20:27)
[2020-01-30] MEDS: AmLODIPine BESYLATE 5 MG TABLET PO SCH (08:23)
[2020-01-30 09:04] VITALS: BP 116/66
[2020-01-30] MEDS: IBUPROFEN 400 MG TABLET PO PRN (09:17)
[2020-01-30 16:02] VITALS: BP 114/69
[2020-01-30] MEDS: TraZODone HCL 50 MG TABLET PO SCH (20:27)
[2020-01-31 00:57] VITALS: BP 122/79
[2020-01-31] MEDS: OLANZapine 10 MG TABLET PO SCH (08:41)
[2020-01-31] MEDS: AmLODIPine BESYLATE 5 MG TABLET PO SCH (08:41)
[2020-01-31] MEDS: FLUoxetine HCL 20 MG CAPSULE PO SCH (08:42)
[2020-01-31 08:45] VITALS: BP 104/67
[2020-01-31] MEDS ORDERED: OLAN10TA20 PO (09:50)
[2020-01-31] MEDS ORDERED: TRAZ-252 PO ×2 (09:50→10:38)
[2020-01-31] MEDS ORDERED: FLUO-191 PO ×2 (09:50→10:47)
[2020-01-31] MEDS: IBUPROFEN 400 MG TABLET PO PRN (09:59)
== END 2020-01-31 13:00 | disposition home or self-care (01) | DRG 750 ==
LOC: B2S 18:54
PROVIDERS: ADMIT Psychiatry & Neurology Psychiatry
DX: F25.1 Schizoaffective disorder, depressive type (principal); E83.51 Hypocalcemia; R45.851 Suicidal ideations; F15.20 Other stimulant dependence, uncomplicated; E78.5 Hyperlipidemia, unspecified; I10 Essential (primary) hypertension; D64.9 Anemia, unspecified; Z59.0 Homelessness
CPT/HCPCS: 80307; 83036; 84439; 84443; 87081